=== PATIENT | female | born 1950 | race Caucasian/White ===

== ENCOUNTER → 2017-09-10 | Outpatient (CLI) | payer MEDICARE, OTHER, SELFPAY | PROVIDERS: Visit Provider Nurse Practitioner Family | DX: E11.9 Type 2 diabetes mellitus without complications (principal); I10 Essential (primary) hypertension; E03.9 Hypothyroidism, unspecified; M25.562 Pain in left knee | CPT/HCPCS: 36415; 73562; 80053; 80061; 82043; 82570; 83036; 84443 ==

== ENCOUNTER → 2017-12-23 09:38 | Outpatient (CLI) | payer MEDICARE, OTHER, SELFPAY ==
[2017-12-23 09:44] LABS: Microscopic, Urine URINE MICROSCOPIC (MICROSCOPIC)
--- NOTE | 2017-12-23 09:59 | XR_ITS ---
XR chest 2V HISTORY: Pain, family history history of cardiovascular disease ITS.REASON: OSTEOARTHRITIS ORDERING PHYSICIAN: Lazaro Mascorro MD PATIENT AGE: 67 years COMPARISON: None available FINDINGS: Cardiac size is upper limits of normal. No CHF. There is evidence of old granulomatous disease. Multiple calcified hilar mediastinal lymph nodes are present. The lungs are clear. There are degenerative changes in the left shoulder and spine. IMPRESSION: As above, no acute finding, old granulomatous disease
[2017-12-23 10:24] LABS: Basophils % 0.3 % (0.1-2.0); Eosinophils # 0.2 K/mm3 (0.0-0.4); Eosinophils % 1.7 % (0.1-12.0); Hematocrit 46.8 % (37.0-47.0); Hemoglobin 15.2 g/dL (12.2-16.2); Lymphocytes # 1.4 K/mm3 (0.7-4.5); Lymphocytes % 16.1 K/mm3 (10-50); Mean Corpuscular HGB Conc 32.4 g/dL (31.8-35.4); Mean Corpuscular Hemoglobin 31.2 pg (27.0-31.2); Mean Corpuscular Volume 96.2 fl (81-99); Mean Platelet Volume 7.4 fl (7.4-10.4); Monocytes # 0.5 K/mm3 (0.1-1.0); Monocytes % 5.8 % (1.7-9.3); Neutrophils # 6.7 K/mm3 (1.8-7.8); Platelet Count 311 K/mm3 (142-424); Red Blood Count 4.86 M/mm3 (4.20-5.40); Red Cell Distribution Width 12.8 % (11.5-17.5); White Blood Count 8.8 K/mm3 (4.8-10.8)
[2017-12-23 11:05] LABS: Appearance,Urine CLEAR (Clear); Bilirubin,Urine Negative (Negative); Blood, Urine Negative (Negative); Color,Urine YELLOW (Yellow); Glucose,Urine (UA) Negative (Negative); Ketones,Urine Negative (Negative); Leukocyte Esterase,Urine Negative (Negative); Nitrate,Urine Negative (Negative); Protein,Urine Negative (Negative); Specific Gravity, Urine 1.015 (1.005-1.030); Urobilinogen,Urine 0.2 EU/dl (0.2)
[2017-12-23 11:25] LABS: Bacteria,Urine Trace /lpf; Squamous Epithelial Cell,Urine Occasional #/hpf (0-5); WBC,Urine Occasional #/hpf (0-3)
[2017-12-23 11:56] LABS: Alanine Aminotransferase 26 U/L (12-78); Albumin Level 3.9 gm/dL (3.4-5.0); Albumin/Globulin Ratio 1.2 (1.1-1.8); Alkaline Phosphatase 78 U/L (46-116); Anion Gap 12.8 mEq/L (5-15); Aspartate Amino Transferase 16 U/L (15-37); Bilirubin,Total 0.8 mg/dL (0.2-1.0); Blood Urea Nitrogen 14 mg/dL (7-18); Calcium 9.5 mg/dL (8.5-10.1); Carbon Dioxide 30 mmol/L (21.0-32.0); Chloride 104 mmol/L (98-107); Creatinine,Serum 0.61 mg/dL (0.55-1.02); Estimated Glomerular Filt Rate 97 ml/min (>60); GFR (African American) 118 ML/MIN (>60); Globulin 3.2 gm/dl (1.3-3.2); Glucose 134 mg/dL (74-106); Potassium 4.8 mmoL/L (3.5-5.1); Sodium 142 mmol/L (136-145); Thyroid Stimulating Hormone 1.94 uIU/ml (0.358-3.740); Total Protein,Serum 7.1 gm/dL (6.4-8.2)
== END ==
PROVIDERS: PCP Internal Medicine Adolescent Medicine; Visit Provider Internal Medicine Adolescent Medicine
DX: Z01.818 Encounter for other preprocedural examination (principal); M17.12 Unilateral primary osteoarthritis, left knee; E03.9 Hypothyroidism, unspecified
CPT/HCPCS: 36415; 71046; 80053; 81001; 84443; 85025; 93005

== ENCOUNTER 2018-02-19 13:00 | Outpatient (RCR) | payer MEDICARE, OTHER, SELFPAY | END 2018-02-19 13:01 | disposition home or self-care (01) | LOC: PT 13:00 | PROVIDERS: Family Provider Internal Medicine Adolescent Medicine; PCP Internal Medicine Adolescent Medicine; Visit Provider Orthopaedic Surgery | DX: Z96.652 Presence of left artificial knee joint (principal) | CPT/HCPCS: 97010; 97014; 97016; 97110; 97140; 97163; G0283 ==

== ENCOUNTER → 2018-07-28 10:21 | Outpatient (CLI) | payer MEDICARE, OTHER, SELFPAY ==
--- NOTE | 2018-07-28 10:25 | MM_ITS ---
MM Dig screening mamm BI w/CAD ORDERING PHYSICIAN : Lazaro Mascorro MD PATIENT AGE: 68 years GENDER: Female COMPARISON: September 2016, 2013, April 2015 INDICATION: ITS.REASON: SCREENINGNo hormones. No new complaints Family history. Mother with breast cancer age 65. Also Maternal great aunt with breast cancer. TECHNIQUE: Standard CC and MLO images were obtained. R2 CAD reviewed. FINDINGS: Moderate residual fibroglandular elements with no suspicious or dominant mass in either breast Mild asymmetry is again noted but I believe is overall stable when technique and considered. RIGHT BREAST stable overall :Minimal areas nodularity superior right breast on MLO view appear stable. Small areas of benign-appearing calcifications stable LEFT BREAST:Moderate no significant change --------IMPRESSION: . Stable mammogram moderate breast density with No new areas of significant concern Bilateral follow-up in one year BI-RADS Category: 1 Negative RECOMMENDED FOLLOW-UP: 1YR 1 YEAR FOLLOW-UP (A letter has been sent to the patient regarding results of the study.)
== END ==
PROVIDERS: PCP Internal Medicine Adolescent Medicine; Visit Provider Internal Medicine Adolescent Medicine
DX: Z12.31 Encounter for screening mammogram for malignant neoplasm of breast (principal)
CPT/HCPCS: 77067

== ENCOUNTER 2018-09-10 09:00 | Outpatient (RCR) | payer MEDICARE, OTHER, SELFPAY ==
--- NOTE | 2018-09-02 09:47 | HMH.PTOPEV ---
PT Outpatient Evaluation Rehab PT Outpatient Evaluation Start: 09/02/18 09:18 Freq: Status: Active Protocol: Document 09/02/18 09:35 SOPHYBAILEY (Rec: 09/02/18 09:46 [id number]) Electronically Signed By Owen Abbott PT 09/02/18 09:35 Outpatient Therapy Subjective History Subjective History This is the initial OP Physical Therapy evaluation for Angelique Garnica. Pt is a 68 y/o female referred to PT for c/o R shoulder. Pt reports insidious onset of pain ~ 2 months ago. Pt reports she has pain w/ household activities, lifting [place] and driving. Pt reports pain in anterior shoulder and into biceps. Chief Complaint Pain Weakness Symptom Type Ache Throb Dull Symptoms Relieved By Rest/Positioning Heat Symptoms Aggravated By Physical Activity Lifting Prior Functional Limitations None Current Functional Limitations Housework Dressing Driving Recreation Activity Symptom Description Intermittent Level of pain today (0-10) 0 Pain scale - at its best (0-10) 0 Pain scale - at its worst (0-10) 5 Shoulder/Elbow Eval Shoulder Objective Measurements Palpation Tenderness tenderness shoulder exam standard right tenderness over the bicipital tendon right shoulder exam standard tenderness over the SA bursa shoulder right exam standard Shoulder Palpation Findings Tenderness Posture Shoulder Posture Sitting Position (L) Rounded (R) Rounded (L) Forward (R) Forward Shoulder ROM Bilateral pain with active ROM shoulder exam right standard full ROM shoulder exam standard bilateral Shoulder Special Tests impingement sign present shoulder exam right standard Shoulder Drop Arm Test Negative Right Shoulder Empty Can (Supraspinatus) Test Negative Right Shoulder Peace-Bradley Impingement Positive Right Test Shoulder Neer Impingement Test Positive Right Elbow Objective Measurements Outpatient Therapy Assessment Impairments Problems/Impairmments Palpation Tenderness Impaired Lifting
== END 2018-09-10 09:05 | disposition home or self-care (01) ==
LOC: PT 09:00
PROVIDERS: Visit Provider Internal Medicine Adolescent Medicine
DX: S43.421A Sprain of right rotator cuff capsule, initial encounter (principal)
CPT/HCPCS: 97110; 97163

== ENCOUNTER → 2018-12-26 09:12 | Outpatient (CLI) | payer MEDICARE, OTHER, SELFPAY ==
[2018-12-26 10:40] LABS: Hemoglobin A1C 6.7 % (0.0-7.0)
[2018-12-26 13:10] LABS: Alanine Aminotransferase 22 U/L (12-78); Albumin Level 3.9 gm/dL (3.4-5.0); Albumin/Globulin Ratio 1.2 (1.1-1.8); Alkaline Phosphatase 72 U/L (46-116); Anion Gap 13.4 mEq/L (5-15); Aspartate Amino Transferase 15 U/L (15-37); Bilirubin,Total 0.7 mg/dL (0.2-1.0); Blood Urea Nitrogen 14 mg/dL (7-18); Calcium 9.4 mg/dL (8.5-10.1); Carbon Dioxide 28 mmol/L (21.0-32.0); Chloride 97 mmol/L (98-107); Chol/HDL Ratio 3.2 (1-3.5); Cholesterol 188 mg/dL (140-200); Estimated Glomerular Filt Rate 71 ml/min (>60); GFR (African American) 86 ML/MIN (>60); Globulin 3.3 gm/dl (1.3-3.2); Glucose 126 mg/dL (74-106); HDL Cholesterol 59 mg/dL (29-89); LDL Cholesterol 112 mg/dL (0-130); Potassium 4.4 mmoL/L (3.5-5.1); Sodium 134 mmol/L (136-145); Thyroid Stimulating Hormone 1.22 uIU/ml (0.358-3.740); Total Protein,Serum 7.2 gm/dL (6.4-8.2); Triglycerides 87 mg/dL (30-200); VLDL Cholesterol 17 mg/dL (0-40)
== END ==
PROVIDERS: Visit Provider Internal Medicine Adolescent Medicine
DX: E03.9 Hypothyroidism, unspecified (principal); E11.9 Type 2 diabetes mellitus without complications; Z79.84 Long term (current) use of oral hypoglycemic drugs
CPT/HCPCS: 36415; 80053; 80061; 83036; 84443

== ENCOUNTER → 2019-10-27 07:20 | Outpatient (CLI) | payer MEDICARE, OTHER, SELFPAY ==
[2019-10-27 08:35] LABS: Hemoglobin A1C 6.6 % (0.0-7.0)
[2019-10-27 10:00] LABS: Alanine Aminotransferase 17 U/L (9-52); Albumin Level 3.7 g/dL (3.4-5.0); Albumin/Globulin Ratio 1.3 (1.1-1.8); Alkaline Phosphatase 53 U/L (46-116); Anion Gap 12.5 mEq/L (5-15); Aspartate Amino Transferase 9 U/L (15-37); Bilirubin,Total 0.5 mg/dL (0.2-1.0); Blood Urea Nitrogen 14 mg/dL (7-18); Calcium 8.9 mg/dL (8.5-10.1); Carbon Dioxide 29 mmol/L (21.0-32.0); Chloride 99 mmol/L (98-107); Chol/HDL Ratio 49.8 (1-3.5); Cholesterol 199 mg/dL (140-200); Creatinine,Serum 0.75 mg/dL (0.55-1.02); Estimated Glomerular Filt Rate 76 ml/min (>60); GFR (African American) 92 ML/MIN (>60); Globulin 2.9 gm/dl (1.3-3.2); Glucose 130 mg/dL (74-106); HDL Cholesterol 4 mg/dL (29-89); LDL Cholesterol 177 mg/dL (0-130); Potassium 4.5 mmoL/L (3.5-5.1); Sodium 136 mmol/L (137-145); Thyroid Stimulating Hormone 2.75 uIU/ml (0.358-3.740); Total Protein,Serum 6.6 g/dL (6.4-8.2); Triglycerides 90 mg/dL (30-200); VLDL Cholesterol 18 mg/dL (0-40)
== END ==
PROVIDERS: Visit Provider Internal Medicine Adolescent Medicine
DX: E78.5 Hyperlipidemia, unspecified (principal); E03.9 Hypothyroidism, unspecified; E11.9 Type 2 diabetes mellitus without complications; Z79.84 Long term (current) use of oral hypoglycemic drugs
CPT/HCPCS: 36415; 80053; 80061; 83036; 84443

== ENCOUNTER → 2019-11-04 08:55 | Outpatient (CLI) | payer MEDICARE, OTHER, SELFPAY ==
--- NOTE | 2019-11-04 08:57 | MM_ITS ---
PROCEDURE: MM DIG SCREENING MAMM BI W/CAD CLINICAL INDICATION: SCREENING COMPARISON: [facility] DIG MAMM-SCREEN KANA from 04/24/2015 [facility] DIG MAMM-SCREEN KANA W/CAD from 10/03/2016 [facility] MM Dig screening mamm BI w/CAD from 07/28/2018 TECHNIQUE: Standard CC and MLO images and 3D Tomosynthesis was obtained. R2 CAD reviewed. FINDINGS: On the CC views there is a circumscribed nodule approximately 6 millimeters in the medial middle 1/3 of the left breast. A correlate for this finding is seen on the MLO views at approximately the nipple line. This appears more conspicuous than on the previous exam and a developing nodule is not excluded. Coned compression views and ultrasound are recommended to further evaluate. No other significant interval changes are apparent. IMPRESSION: BI-RAD Category: 0 Need Additional Imaging Evaluation FOLLOW-UP: (A letter has been sent to the patient regarding results of the study.) Dictated by: Quintin Reynoso 11/04/2019 18:38 Electronically signed by Quintin Reynoso in [place] 11/04/2019 18:38
== END ==
PROVIDERS: PCP Internal Medicine Adolescent Medicine; Visit Provider Internal Medicine Adolescent Medicine
DX: Z12.31 Encounter for screening mammogram for malignant neoplasm of breast (principal)
CPT/HCPCS: 77063; 77067

== ENCOUNTER → 2019-11-16 11:07 | Outpatient (POV) | payer MEDICARE, OTHER, SELFPAY | PROVIDERS: PCP Dermatology; Visit Provider Dermatology | DX: Z00.00 Encounter for general adult medical examination without abnormal findings (principal) ==

== ENCOUNTER → 2019-11-22 13:18 | Outpatient (CLI) | payer MEDICARE, OTHER, SELFPAY ==
--- NOTE | 2019-11-22 13:21 | MM_ITS ---
PROCEDURE: MM DIG MAMM DX UNILAT LT CAD Digital Breast Tomosynthesis Included CLINICAL INDICATION: ABN MAMM COMPARISON: [facility] DIG MAMM-SCREEN KANA W/CAD from 10/03/2016 [facility] MM Dig screening mamm BI w/CAD from 07/28/2018 MM DIG SCREENING MAMM BI W/CAD from 11/04/2019 US BREAST LT COMPLETE from 11/22/2019 TECHNIQUE: Spot-compression views are obtained along with left breast ultrasound. FINDINGS: No malignant appearing mass or malignant-appearing microcalcification is evident. Left breast ultrasound: No cystic or solid lesions evident. IMPRESSION: BI-RAD Category: 1 Negative FOLLOW-UP: 1YR 1 Year Follow-up (A letter has been sent to the patient regarding results of the study.) Dictated by: Teja Hernandez MD 11/22/2019 14:05 Electronically signed by Teja Hernandez MD in [place] 11/22/2019 14:05
== END ==
PROVIDERS: PCP Internal Medicine Adolescent Medicine; Visit Provider Internal Medicine Adolescent Medicine
DX: R92.8 Other abnormal and inconclusive findings on diagnostic imaging of breast (principal)
CPT/HCPCS: 76641; 77061; 77065; G0279

== ENCOUNTER → 2020-02-04 10:31 | Outpatient (CLI) | payer MEDICARE, OTHER, SELFPAY ==
--- NOTE | 2020-02-04 10:36 | XR_ITS ---
PROCEDURE: XR DEXA AXIAL SKELETON CLINICAL HISTORY: POSTMENOPAUSAL COMPARISON: No exams were available for comparison FINDINGS: Right femoral neck density is 0.757 grams/centimeters sq with T-score -0.8. Left femoral neck density is 0.775 grams/centimeters sq with T-score -0.7. L1-L4 density is 1.233 grams/centimeter sq with a T-score of 1.7 IMPRESSION: Normal bone density with low fracture risk. Suggest follow-up exam in 2 years Dictated by: Teja Hernandez MD 02/04/2020 14:21 Electronically signed by Teja Hernandez MD in [place] 02/04/2020 14:21
== END ==
PROVIDERS: PCP Internal Medicine Adolescent Medicine; Visit Provider Internal Medicine Adolescent Medicine
DX: Z13.820 Encounter for screening for osteoporosis (principal); Z78.0 Asymptomatic menopausal state
CPT/HCPCS: 77080

== ENCOUNTER → 2020-02-28 17:11 | Outpatient (CLI) | payer MEDICARE, OTHER, SELFPAY ==
--- NOTE | 2020-02-28 17:24 | XR_ITS ---
PROCEDURE: XR SHOULDER RT MIN 2V CLINICAL INDICATION: BILATERAL SHOULDER PAIN, NO INJURY COMPARISON: No exams were available for comparison FINDINGS: There are moderate osteoarthritic changes of the glenohumeral joint with subacromial stenosis and mild osteoarthritis of the AC joint. Minimal calcification noted inferior to the neck of the humerus. No acute fracture or dislocation. There is a thin curvilinear sclerotic line along the humeral neck extending up into the head region. This could be related to an old fracture. IMPRESSION: Osteoarthritic change Possible old proximal humeral fracture Dictated by: Teja Hernandez MD 02/28/2020 17:57 Electronically signed by Teja Hernandez MD in [place] 02/28/2020 17:57
--- NOTE | 2020-02-28 17:24 | XR_ITS ---
PROCEDURE: XR SHOULDER LT MIN 2V CLINICAL INDICATION: Worsening pain COMPARISON: XR SHOULDER RT MIN 2V from 02/28/2020 FINDINGS: There are moderate osteoarthritic changes of the glenohumeral joint with osteophyte formation along the humeral head/neck junction medially and along the greater tubercle region with a subarticular cyst at the base of the greater tubercle. Mild osteoarthritic change of the AC joint. No acute fracture or dislocation. Calcification noted superior to the humeral head on the scapular Y-view and may be related to calcific tendinitis. There may be some subarticular cystic change at the glenoid fossa IMPRESSION: Osteoarthritic change as described above with possible calcific tendinitis Dictated by: Teja Hernandez MD 02/28/2020 17:50 Electronically signed by Teja Hernandez MD in [place] 02/28/2020 17:50
== END ==
PROVIDERS: PCP Internal Medicine Adolescent Medicine; Visit Provider Internal Medicine Adolescent Medicine
DX: M25.512 Pain in left shoulder (principal); M25.511 Pain in right shoulder
CPT/HCPCS: 73030

== ENCOUNTER 2020-03-20 15:00 | Outpatient (RCR) | payer MEDICARE, OTHER, SELFPAY | END 2020-03-20 15:05 | disposition home or self-care (01) | LOC: OT 15:00 | PROVIDERS: PCP Internal Medicine Adolescent Medicine; Visit Provider Internal Medicine Adolescent Medicine | DX: M25.512 Pain in left shoulder (principal); M25.511 Pain in right shoulder | CPT/HCPCS: 97014; 97033; 97035; 97110; 97165; G0283 ==

== ENCOUNTER → 2020-05-10 13:32 | Outpatient (CLI) | payer MEDICARE, OTHER, SELFPAY ==
--- NOTE | 2020-05-10 13:32 | MR_ITS ---
PROCEDURE: MR SHOULDER RT WO CON CLINICAL INDICATION: right shoulder pain/ evaluate rotator cuff tear Limited ROM rt shoulder x 6 months with no known trauma or injury. Pt. C/o rt shoulder pain radiating down rt arm. Prior rt shoulder x-ray 02/28/20 COMPARISON: CR XR SHOULDER RT MIN 2V from 02/28/2020 TECHNIQUE: Routine multiplanar multi echo sequences are performed without gadolinium enhancement. FINDINGS: Motion artifact obscures fine detail on every sequence. Prominent osteoarthritic changes are present at the glenohumeral joint with elevation of the humeral head. Osteoarthritic changes with hypertrophy also noted at the acromioclavicular joint. There is full-thickness tear of the supraspinatus tendon distally. This may very well represent a complete tear. There is some questionable fibers which may be intact however, this is questionable. There is tear also of the infraspinatus tendon which appears partial. The subscapularis and teres minor tendons are intact. No obvious labral tear. Fluid is present in the shoulder joint in the sub glenoid region and in the subcoracoid area. The bicipital tendon is in place. IMPRESSION: Severe osteoarthritis of the glenohumeral joint with superior location of the humeral head with full-thickness and possibly complete tear of the supraspinatus tendon and partial tear of the infraspinatus tendon. Fluid is present in the subcoracoid and subglenoid region. There are hypertrophic changes of the acromioclavicular joint. Motion artifact does obscure fine detail. Dictated by: Teja Hernandez MD 05/11/2020 09:32 Teja Hernandez MD in [place] 05/11/2020 09:32
== END ==
PROVIDERS: PCP Internal Medicine Adolescent Medicine; Visit Provider Orthopaedic Surgery
DX: M25.511 Pain in right shoulder (principal)
CPT/HCPCS: 73221

== ENCOUNTER → 2020-06-26 12:49 | Outpatient (CLI) | payer MEDICARE, OTHER, SELFPAY ==
--- NOTE | 2020-06-26 | CA_ITS ---
APPROVED REPORT EXAM: Comprehensive 2D, Doppler, and color-flow Echocardiogram Assistant Professor Of Music: Eliane Gan CRT Ht: 5 ft 3 in Wt: 191lbs BSA: 1.90 BP: 138/72 mmHg Indications: Abnormal ECG, Diabetes, Hyperlipidemia, Hypertension/HDD Echo Enhancing Agent Indication: Rule out Shunt Agent(s) / Amount(s) Used: Agitated Saline 15 cc Comments: Bubble study ordered by 2D Dimensions LVOT 2.04 cm (M/F) 1.5-2.5 M-Mode Dimensions RVDd 2.58 cm (0.9-2.6) LVDd 4.29 cm (3.5-5.7) LVDs 2.43 cm (3.5-5.7) IVSd 2.15 cm (0.6-1.1) PWd 0.97 cm (0.6-1.1) EF (Teich) 74.80% FS 43.40% EDV (Teich) 82.60 mL ESV (Teich) 20.80 mL LV Diastology E/A Ratio 0.73 Aortic Valve LVOT Max 108.00 (70-110 cm/s) LVOT VTI 24.62 cm Mitral Valve MV A Velocity 69.00 (40-130 cm/s) Left Ventricle Left atrium is mildly enlarged, left ventricle is normal size, mild concentric left ventricular hypertrophy, visually estimated ejection fraction 55% with no regional wall motion abnormality, grade 1 diastolic dysfunction seen without tissue Doppler evidence of raise left atrial pressure. Right Ventricle Right atrium and right ventricular normal size and contractility. Atria Intra-atrial septum is intact, there is no flow across interatrial septum, agitated saline contrast reveals 25 intracardiac shunt. Aortic Valve Aortic valve is minimally thickened and calcified, there is no aortic stenosis or aortic insufficiency. Mitral Valve Mitral valve is grossly normal, there is mild mitral regurgitation. Tricuspid Valve Tricuspid valve is grossly normal, there is mild tricuspid regurgitation, tricuspid regurgitation jet velocity is inadequate for calculation of the right ventricular systolic pressure. Pulmonic Valve Pulmonic valve is poorly visualized. Great Vessels Aortic root is normal size. Pericardium No significant pericardial effusion noted. Conclusion 1. Mildly enlarged left atrium, normal left ventricular size, mild concentric left ventricular hypertrophy, visually estimated ejection fraction 55% with no regional wall motion abnormality, grade 1 diastolic dysfunction seen without tissue Doppler evidence of raise left atrial pressure. 2. Mild mitral and tricuspid regurgitation. 3. Agitated saline contrast study fails 25 intracardiac shunt. Electronically signed by : Edson Carnes, 06/26/2020 20:54:39
== END ==
PROVIDERS: PCP Internal Medicine Adolescent Medicine; Visit Provider Internal Medicine Adolescent Medicine
DX: Z01.810 Encounter for preprocedural cardiovascular examination (principal); I45.10 Unspecified right bundle-branch block
CPT/HCPCS: 93306

== ENCOUNTER → 2020-07-01 10:19 | Outpatient (CLI) | payer MEDICARE, OTHER, SELFPAY ==
[2020-07-01 10:25] LABS: Microscopic, Urine URINE MICROSCOPIC (MICROSCOPIC)
[2020-07-01 10:49] LABS: Basophils % 0.5 % (0.1-2.0); Eosinophils # 0.4 K/mm3 (0.0-0.4); Eosinophils % 4.3 % (0.1-12.0); Hematocrit 43.3 % (37.0-47.0); Hemoglobin 14.1 g/dL (12.2-16.2); Lymphocytes # 1.3 K/mm3 (0.7-4.5); Lymphocytes % 15.3 % (10-50); Mean Corpuscular HGB Conc 32.5 g/dL (31.8-35.4); Mean Corpuscular Hemoglobin 30.7 pg (27.0-31.2); Mean Corpuscular Volume 94.3 fl (81-99); Mean Platelet Volume 6.4 fl (7.4-10.4); Monocytes # 0.5 K/mm3 (0.1-1.0); Monocytes % 5.1 % (1.7-9.3); Neutrophils # 6.5 K/mm3 (1.8-7.8); Neutrophils % 74.9 % (37.0-80.0); Platelet Count 393 K/mm3 (142-424); Red Cell Distribution Width 12.4 % (11.5-17.5); White Blood Count 8.7 K/mm3 (4.8-10.8)
[2020-07-01 11:28] LABS: Appearance,Urine CLEAR (Clear); Bilirubin,Urine Negative (Negative); Blood, Urine Negative (Negative); Color,Urine YELLOW (Yellow); Glucose,Urine (UA) Negative (Negative); Ketones,Urine Negative (Negative); Leukocyte Esterase,Urine Negative (Negative); Nitrate,Urine Negative (Negative); PH,Urine 6.5 (5.0-8.5); Protein,Urine Negative (Negative); Urobilinogen,Urine 0.2 EU/dl (0.2)
[2020-07-01 11:41] LABS: Bacteria,Urine Trace /lpf; Transitional Epi Cells,Urine OCC #/lpf (0-3)
[2020-07-01 12:43] LABS: Coronavirus 19 IgG Antibody Positive (Negative); Coronavirus 19 IgM Antibody Negative (Negative)
[2020-07-01 13:01] LABS: Chloride 87 mmol/L (98-107); Potassium 3.9 mmoL/L (3.5-5.1); Sodium 126 mmol/L (136-145)
[2020-07-01 13:04] LABS: Alanine Aminotransferase 58 U/L (12-78); Albumin Level 3.9 g/dl (3.5-5.0); Albumin/Globulin Ratio 1.4 (1.1-1.8); Alkaline Phosphatase 190 U/L (38-126); Anion Gap 11.9 mEq/L (5-15); Aspartate Amino Transferase 47 U/L (14-36); Blood Urea Nitrogen 10 mg/dl (7-17); Calcium 9.8 mg/dl (8.4-10.2); Carbon Dioxide 31 mmol/L (22.0-30.0); Estimated Glomerular Filt Rate 82 ml/min (>60); GFR (African American) 100 ML/MIN (>60); Globulin 2.7 g/dL (1.3-3.2); Glucose 207 mg/dl (74-100); Total Protein,Serum 6.6 g/dl (6.3-8.2)
[2020-07-01 13:51] LABS: Hemoglobin A1C 7.9 % (4.0-6.0)
== END ==
PROVIDERS: Visit Provider Orthopaedic Surgery
DX: Z01.818 Encounter for other preprocedural examination (principal)
CPT/HCPCS: 36415; 80053; 81001; 83036; 85025; 86328; 86850

== ENCOUNTER 2020-07-03 07:20 | Inpatient (IN) | payer MEDICARE, OTHER, SELFPAY ==
[2020-06-28 13:30] VITALS: BMI 34.7
[2020-07-03] VITALS (23 sets, daily range): BP systolic 113–193; BP diastolic 58–98; PULSE 64–81; RESP 13–20; TEMP 36.3–38; O2SAT 96–100; BMI 35.8
[2020-07-03 06:51] LABS: POC Glucose,Bedside 229 (70-110)
[2020-07-03 06:58] LABS: Chloride 88 mmol/L (98-107); Potassium 3.9 mmoL/L (3.5-5.1); Sodium 124 mmol/L (136-145)
[2020-07-03 07:01] LABS: Anion Gap 13.9 mEq/L (5-15); Blood Urea Nitrogen 12 mg/dl (7-17); Calcium 9.7 mg/dl (8.4-10.2); Carbon Dioxide 26 mmol/L (22.0-30.0); Creatinine Clearance Estimated 71 mL/min (50-200); Estimated Glomerular Filt Rate 98 ml/min (>60); GFR (African American) 119 ML/MIN (>60); Glucose 248 mg/dl (74-100)
--- NOTE | 2020-07-03 07:04 | P.PN_ITS ---
[facility] Anesthesia Checklist - Patient Identification Patient Identification: Arm Band, Verbal (Name & ) - Structural Data Admitted From: Home Planned Operative Procedure/s: right total shoulder arthroplasty Consent for Planned Operative Procedure(s) Verified: Yes Verified Documents: History and Physical - NPO Status Verified Time NPO: 00:00 - Chart Verification Results Verified: CBC, BMP - Additional verifications Patient : No Anesthesia Reactions: No Hx Blood Transfusions: No Blood Transfusion Reaction: No Cephalosporin Allergy: No Previous Colonoscopy: No - Cardiovascular Assessment Heart Sounds: S1 & S2 Pulse Strength: Baseline Pulse Rhythm: Regular Peripheral Edema: No - Airway Assessment C-Spine Mobility Assessed: Yes TMJ Mobility Assessed: Yes Dentition: Good Dentition - Neurological Assessment Level of Consciousness: Awake, Alert, Appropriate Hx Seizures: No Numbness or tingling in extremities: No - Anesthesia Plan Anesthesia Risk discussed: Yes Anesthesia Plan: Verified ASA Class: III Anesthesia Type: General w/block [facility] History I have reviewed the patient's past medical history: Yes Medical History: Reports:: Diabetes Mellitus Type 2, Hyperlipidemia, Hypertension Denies:: Cancer, Diabetes Mellitus Type 1, Internal Pacemaker, MRSA, Seizures *Have you ever received a pneumonia vaccine?: Yes *Have you received a flu vaccine this season?: Yes Other Medical History: Reports: Arthritis. Denies: Blood Transfusion Reaction Anesthesia experience/problems:: none Laterality Cases: Left: Total Knee Replacement, Bilateral: Tonsillectomy Other Surgeries: Yes: Colonoscopy. No: Pacemaker Amputation: No - *Social History Last grade of school completed: High school graduate Smoking Status: Never smoker Alcohol Intake: never Substance Use Type: other *Occupational Status:: retired Housing: house Household Members: spouse *Travel in the last 8 weeks: None Family Hx:: Cancer, Hypertension
--- NOTE | 2020-07-03 07:34 | HMH.PHAINT ---
HOME MEDICATION RECONCILIATION COMPLETED USING LIST FROM HOME PHARMACY
[2020-07-03 11:39] LABS: POC Glucose,Bedside 126 (70-110)
--- NOTE | 2020-07-03 12:33 | XR_ITS ---
PROCEDURE: XR SHOULDER RT MIN 2V CLINICAL INDICATION: s/p reverse right shoulder arthroplasty COMPARISON: CR XR SHOULDER RT MIN 2V from 02/28/2020 FINDINGS: The reverse shoulder prosthesis is in good alignment with the glenoid component fixated to the glenoid by multiple threaded screws. The medullary stem is well seated within the proximal humeral shaft. Minor postsurgical soft tissue changes are noted. IMPRESSION: Satisfactory postop appearance right shoulder prosthesis Dictated by: Dr. Catalino Brady MD 07/03/2020 14:39 Dr. Catalino Brady MD in [place] 07/03/2020 14:39
--- NOTE | 2020-07-03 12:45 | HMH.ANESI ---
[facility] Anesthesia Record Part I Intake, IV Amount: 2,200 Estimated blood loss (mL): 100 Urine output (mL): 400 Blood Products used (#): none Blood Pressure: 132/59 SaO2: 97 Pulse Rate: 67 Respiratory Rate: 20 Temperature: 98.4 F Patient is:: Drowsy, Nasal O2, Stable Stable to PACU at:: 12:42
--- NOTE | 2020-07-03 13:03 | HMH.OPNOTE ---
Date of procedure: 07/03/20 Pre-op Diagnosis:: Rotator cuff tear arthropathy, right shoulder Post-op Diagnosis:: Same Procedure performed:: Reverse shoulder arthroplasty, right Surgeon:: Ko Marx MD [facility] Subject Matter Expert(s):: Linda Love SHADING PAINTER:: Sarah Daniel Anesthesia: GETA, regional (Interscalene nerve block) Estimated blood loss (mL): 100 Clinical Note:: Patient is a 70-year-old female with advanced degenerative changes in her right shoulder secondary to chronic rotator cuff tear. She is having significant pain, stiffness and disability secondary to the arthritis. Please refer to my office note for full details. Operative findings:: Advanced degenerative changes involving both glenoid and humeral head as noted on the preoperative imaging. Patient also had complete full-thickness tears of the supra and infraspinatus tendons. Subscapularis had partial upper border tear. The biceps tendon was intact. Operative note:: The patient was identified in the preoperative holding area. Risks were discussed with the patient, who again consented to the surgical procedure. The site and side were marked and initialed by me. Patient was taken to the operating room and placed under general anesthesia and positioned in a beach chair position with the head in neutral position. All the bony prominences were appropriately padded. Prior to that patient also had interscalene nerve blocks in the preoperative area. The upper extremity was prepped and draped in the usual sterile fashion. Skin incision was marked for a deltopectoral approach. The operative site was then sealed off with Ioban drape. A preprocedure timeout was performed as per hospital protocol.? Administration of preoperative prophylactic antibiotics (IV Ancef and vancomycin) was confirmed with the education reporter.? First dose of tranexamic acid was administered by the education reporter prior to starting the procedure. A 10 cm long incision was made over the deltopectoral interval. Using a combination of Bovie cautery and blunt dissection, the deltopectoral interval was developed mobilizing the cephalic vein medially. The underlying fascia was incised and a combination of careful sharp and blunt dissection was used to free up the subdeltoid, subcoracoid and subacromial intervals. Rotator cuff pathology involving the supraspinatus, infraspinatus and part of the subscapularis was identified. Excess degenerative rotator cuff was released and excised. The biceps tendon was identified in the groove and noted to be partially torn.? The biceps tendon was tenotomized and soft tissue tenodesis performed to the upper border of pectoralis major with #1 Vicryl sutures. Inferiorly the capsule was carefully released and the humeral head was gently dislocated anteriorly. An external cutting guide was placed along the humerus and the humeral head and surrounding osteophytes were resected. A canal finder followed by sequential reaming and broaching was performed, and the trial broach was left in position. A calcar planar was used to fine-tune the depth, varus/valgus and version of the humeral cut. Retractors were then placed around the glenoid and the labrum was excised all around. The axillary nerve was identified by tug test and a careful capsular release was performed after protecting the axillary nerve. Osteophytes mainly anteriorly over the glenoid were removed with a rondure. Guide pin was drilled into the central inferior aspect of the glenoid at 10 degrees of inferior tilt using the drill guide. The glenoid was then reamed. A standard Quapaw reunion baseplate with a center screw and 4 peripheral locking screws was opened and assembled onto the glenoid with excellent initial fixation. Based off trialing and soft tissue tension, a Chantell reunion is size 10 humeral stem with a 4 mm humeral socket and 6 mm poly-liner was opened and assembled on the back table. A 32+6 glenosphere was opened and assembled onto the basepla
[2020-07-03 13:08] LABS: POC Glucose,Bedside 158 (70-110)
[2020-07-03 13:08] LABS: Microscopic,Cath URINE MICROSCOPIC (MICROSCOPIC)
[2020-07-03 13:10] LABS: Appearance,Urine/Cath CLEAR (Clear); Bilirubin,Cath Negative (Negative); Blood, Urine/Cath Negative (Negative); Color,Urine/Cath YELLOW (Yellow); Glucose,Urine/Cath (UA) TRACE (Negative); Ketones,Urine/Cath Negative (Negative); Leukocyte Esterase,Cath Negative (Negative); Nitrate,Cath Negative (Negative); PH,Urine/Cath 7.5 (5.0-8.5); Protein,Urine/Cath Negative (Negative); Urobilinogen,Cath 0.2 EU/dl (0.2)
[2020-07-03 13:29] LABS: Bacteria,Urine/Cath TRACE /lpf; Squamous Epithelial Ur./Cath Occasional #/hpf (0-5)
--- NOTE | 2020-07-03 14:15 | SW/DCPLANNER ---
Addendum entered by Corrine Tesfaye 07/04/20 13:56: DR RUSS STATED PATIENT IS NOT READY FOR ANY REHAB SERVICES AT THIS TIME UNTIL HE SEES HER IN THE OFFICE... I SPOKE WITH PATIENT AND SHE STATED SHE DOES NOT NEED ANY EQUIPMENT AT HOME... MAY DISCHARGE LATER TODAY... Addendum entered by Corrine Tesfaye 07/04/20 06:46: WILL SEE PATIENT THIS MORNING TO SPEAK ABOUT HER DISCHARGE PLANS SINCE PATIENT IS AWAKE AND ALERT... PATIENT AND WAS OFFERED OUT PATIENT THERAPY HERE AT THE HOSPITAL YESTERDAY AFTER HER SURGERY AND SINCE THEY LIVE JUST [address] I FELT HER THERAPY MAY BE MORE SUCCESSFUL HERE VS HOME HEALTH.... WILL SEE IF SHE NEEDS ANY EQUIPMENT BEFORE SHE DISCHARGES AND ANYTHING ELSE SHE MAY NEED.... Original Note: WENT IN TO SEE PATIENT AND SPOUSE TODAY REGARDING HER DISCHARGE PLANS: SHE WAS DOING HER ADMISSION ASSESSMENT WITH THE NURSE AND I SPOKE WITH THE ... HE STATED THEY LIVE [address] AND HE THINKS HER COMING BACK HERE WOULD BE THE BEST FOR HER REHAB...SHE WAS STILL A LITTLE BIT GROGGY, WILL SEE HER IN THE AM AND FOLLOW UP ON ANY EQUIPMENT SHE MAY NEED... I HAVE ALSO TEXTED DR RUSS...
--- NOTE | 2020-07-03 14:15 | SUR.PHASEI ---
FSBS [phone]-[id number], reported to Ashley Dial.
--- NOTE | 2020-07-03 14:28 | PC.NURSE ---
case management stated they will let dr. anderson know about consult.
--- NOTE | 2020-07-03 15:04 | HMH.ANESII ---
[facility] Anesthesia Record Part II Discharge Time: 13:12 Destination: Medical Surgical Department PACU nurse assessment reviewed?: Yes Patient Condition:: Good Anesthesia Complications:: None Swallowing reflex intact?: Yes Cyanosis?: No Blood Pressure: 146/67 Pulse Rate: 65 Temperature: 97.4 F Mental Status: Alert & Oriented Pain level:: 0 Nausea and/or vomitting:: None Intake, IV Amount: 35
--- NOTE | 2020-07-03 15:31 | HMH.CONS ---
*Admission Date: 07/03/20 *Reason for consult:: Med Management *History of present illness: 70-year-old white female who underwent shoulder surgery today on the right side per orthopedics. Asked to consult for ongoing medication administration and postoperative care. Patient still somewhat sleepy, has mild sore throat and irritant cough but otherwise has no complaints of significant pain or dyspnea issues [facility] History I have reviewed the patient's past medical history: Yes Medical History: Reports:: Diabetes Mellitus Type 2, Hyperlipidemia, Hypertension Denies:: Cancer, Diabetes Mellitus Type 1, Internal Pacemaker, MRSA, Seizures *Have you ever received a pneumonia vaccine?: Yes *Have you received a flu vaccine this season?: Yes Other Medical History: Reports: Arthritis. Denies: Blood Transfusion Reaction Anesthesia experience/problems:: none Laterality Cases: Left: Total Knee Replacement, Right: Arthroscopy Shoulder, Bilateral: Tonsillectomy Other Surgeries: Yes: Colonoscopy. No: Pacemaker Amputation: No - *Social History Last grade of school completed: Some college Smoking Status: Never smoker Alcohol Intake: never Substance Use Type: other *Occupational Status:: retired Housing: house Household Members: spouse *Travel in the last 8 weeks: None Family Hx:: Cancer, Hypertension Review of Systems - Review of Systems Review of systems:: pertinent systems reviewed and negative unless documented below Meds Home Medications Medication Instructions Recorded Confirmed Type loratadine 10 mg tablet 10 mg PO DAILY 09/30/17 07/03/20 History celecoxib 200 mg capsule 200 mg PO BIDP PRN 04/11/20 07/03/20 History fluticasone propionate 50 2 sprays INTRANASAL BID 04/11/20 07/03/20 History mcg/actuation nasal spray,suspension lisinopril 20 1 tab PO DAILY 04/11/20 07/03/20 History mg-hydrochlorothiazide 25 mg tablet primidone 50 mg tablet 50 mg PO DAILY 04/11/20 07/03/20 History Benzoyl Peroxide [Clean-Clear 1 applic TOPICAL BID 06/28/20 07/03/20 History Continuous Control] Chlorhexidine Gluconate 1 applic TOPICAL ONCE 06/28/20 07/03/20 History Atorvastatin Calcium [Lipitor 40mg 40 mg PO HS 07/03/20 07/03/20 History Tablet*] Levothyroxine Sodium 125 mcg PO DAILY 07/03/20 07/03/20 History [Levothyroxine 125mcg (0.125mg) Tab] Metformin HCl [Metformin 1000mg 1,000 mg PO BID 07/03/20 07/03/20 History Tablets] carvediloL [Carvedilol 25mg Tab] 25 mg PO BID 07/03/20 07/03/20 History Allergies Allergy/AdvReac Type Severity Reaction Status Date / Time No Known Allergies Allergy Verified 07/03/20 06:25 Exam Vital signs and Labs for Last 24 Hours: Temp Pulse Resp BP Pulse Ox 97.4 F L 65 15 146/67 H 100 07/03/20 15:05 07/03/20 15:05 07/03/20 13:21 07/03/20 15:05 07/03/20 15:14 Laboratory Results - last 24 hr 07/03/20 06:39: POC Glucose 229 H 07/03/20 06:41: Sodium 124 L, Potassium 3.9, Chloride 88 L, Carbon Dioxide 26, Anion Gap 13.9, BUN 12, Creatinine 0.60, Estimated Creat Clear 71, Estimated GFR 98, Est GFR ( Amer) 119, Glucose 248 H, Calcium 9.7 07/03/20 08:25: Urine Color Yellow, Urine Appearance Clear, Urine pH 7.5, Ur Specific [place] 1.010, Urine Protein Negative, Urine Glucose (UA) Trace, Urine Ketones Negative, Urine Blood Negative, Urine Nitrate Negative, Urine Bilirubin Negative, Urine Urobilinogen 0.2, Ur Leukocyte Esterase Negative, Urine RBC None, Urine WBC None, Ur Squamous Epith Cells Occasional, Urine Bacteria Trace 07/03/20 11:31: POC Glucose 126 H 07/03/20 13:01: POC Glucose 158 H I & O for Last 24 hours: Intake & Output 07/01/20 07/02/20 07/03/20 07/04/20 11:59 11:59 11:59 11:59 Intake Total 2235 / 2235 Balance 2235 / 2235 Weight 196 lb - Constitutional no acute distress, obese - *Routine HEENT Exam Head: Present: normocephalic Eye: Present: EOMI, PERRL ENT: Present: mucous membranes moist - *Routine Neck Exam Present: supple
--- NOTE | 2020-07-03 16:48 | HMH.ORTHPN ---
Subjective Date: 07/03/20 Time: 16:30 Principal diagnosis: Status post reverse shoulder arthroplasty, right Interval history: Patient is status post right reverse shoulder arthroplasty post op day # 0. Patient is lying down in the bed. Says she is doing well and reports no problems. Patient has no pain or discomfort in the shoulder; says the nerve block is working well. She reports some nausea and says it will get better if she eats something. No history of any cough, chest pain, shortness of breath or palpitations. PN: Obj Ex Vital signs: Temp Pulse Resp BP Pulse Ox 97.5 F L 71 15 167/98 H 100 07/03/20 15:20 07/03/20 15:20 07/03/20 15:20 07/03/20 15:20 07/03/20 15:20 Narrative: Exam General appearance: alert, awake, no acute distress Cardiovascular: regular rate & rhythm, normal peripheral pulses Respiratory: No respiratory distress noted, speaks in full sentences ABD: soft and non tender Neuro: alert, awake, oriented x 3 Psych: Appropriate mood and affect for her situation On examination of the right shoulder the dressings are clean, dry and intact; she is in an arm sling. The surgical drain is in place and draining well. There is no soakage of the dressings. Distal pulses are 2+. Decreased sensation and weakness over the right upper extremity status post interscalene nerve block. - Urinary Catheter Management Guerrero Cath placed during this visit: no Progress Note: A&P (1) Type 2 diabetes mellitus with obesity Status: Acute (2) Hypertension Status: Acute (3) Status post reverse total shoulder replacement Start date: 07/03/20 Status: Acute (4) Rotator cuff tear arthropathy of right shoulder Status: Chronic Assessment and Plan for All Diagnoses:: I have reviewed the clinical and operative findings and procedure performed with the patient and her . Patient is doing well and reports no problems. Advised her to continue with the arm sling, rest, activity modification, regular icing/use the polar pack and as needed pain medication. Encouraged her to intermittently move the elbow, forearm, wrist and fingers. Recommend strict nonweightbearing on the right upper extremity. Specifically advised her to not mobilize the shoulder and also place a pillow behind the elbow when lying down or sitting. Case management consult regarding discharge planning. Patient was seen by Dr. Mascorro for management of medical problems; appreciate the recommendations. Continue medical management as per Dr. Mascorro.
--- NOTE | 2020-07-03 18:38 | PC.NURSE ---
185 mls bright red blood emptied from JOHNNY drain.
--- NOTE | 2020-07-03 19:14 | PC.NURSE ---
report given to buffy
--- NOTE | 2020-07-03 19:36 | PC.NURSE ---
30ml of bright red blood drained from JOHNNY drain and charted + prev shift's 185ml output for a total of 215 since post-op.
[2020-07-04] VITALS: BP 125/56; PULSE 75; RESP 16; TEMP 36.3; O2SAT 97
[2020-07-04 04:00] VITALS: BP 125/54; PULSE 71; RESP 16; TEMP 36.6; O2SAT 93
--- NOTE | 2020-07-04 04:22 | PC.NURSE ---
Pt is A&Ox4 and has ambulated to the BSC 3x thus far with staff assist x2 and tolerates well. Pt has c/o pain 1x and medicated per NOV. Polar pack in use and ice changed 2x this shift. Pt has denied any N/V/D. Pt has c/o feeling phlegm in the back of my throat , pt denies any SOA. IS teaching given to pt and pt used several times while awake, goal met. Pt weaned from 1LPM of NC to room air at the beginning of the shift and pt has tolerated RA t/o shift. Lungs CTA. ABD soft, non-tender with active BS x4 quads. JOHNNY drain in place to pt's right shoulder and bright red, xin blood noted t/o shift. Current accumulation this shift is 90ml. IPCS in use to BLE. UE kept in sling and pillows kept behind back of arm per MD Marx. VSS, call light within reach.
[2020-07-04 05:00] VITALS: BMI 34.9
[2020-07-04 06:43] LABS: POC Glucose,Bedside 173 (70-110)
[2020-07-04 07:01] LABS: Basophils % 0.1 % (0.1-2.0); Eosinophils # 0.3 K/mm3 (0.0-0.4); Eosinophils % 2.4 % (0.1-12.0); Hematocrit 38.9 % (37.0-47.0); Hemoglobin 12.8 g/dL (12.2-16.2); Lymphocytes # 1.4 K/mm3 (0.7-4.5); Mean Corpuscular HGB Conc 32.8 g/dL (31.8-35.4); Mean Corpuscular Hemoglobin 30.7 pg (27.0-31.2); Mean Corpuscular Volume 93.7 fl (81-99); Mean Platelet Volume 7.1 fl (7.4-10.4); Monocytes # 0.7 K/mm3 (0.1-1.0); Monocytes % 6.6 % (1.7-9.3); Neutrophils # 8.4 K/mm3 (1.8-7.8); Neutrophils % 77.9 % (37.0-80.0); Platelet Count 336 K/mm3 (142-424); Red Blood Count 4.15 M/mm3 (4.20-5.40); White Blood Count 10.8 K/mm3 (4.8-10.8)
[2020-07-04 07:17] LABS: Chloride 91 mmol/L (98-107); Sodium 126 mmol/L (136-145)
[2020-07-04 07:18] LABS: Potassium 3.4 mmoL/L (3.5-5.1)
[2020-07-04 07:20] LABS: Blood Urea Nitrogen 8 mg/dl (7-17); Creatinine Clearance Estimated 69 mL/min (50-200); Estimated Glomerular Filt Rate 98 ml/min (>60); GFR (African American) 119 ML/MIN (>60)
[2020-07-04 07:21] LABS: Anion Gap 12.4 mEq/L (5-15); Carbon Dioxide 26 mmol/L (22.0-30.0); Glucose 179 mg/dl (74-100)
[2020-07-04 07:53] VITALS: BP 157/76; PULSE 67; RESP 19; TEMP 36.7; O2SAT 97
--- NOTE | 2020-07-04 08:09 | HMH.ACPN2 ---
Internal Medicine - PN: Subj *Date: 07/04/20 *Time: 11:57 Interval history: Ms. Garnica has done well. No nausea overnight. Blood pressure little higher however suspect secondary to pain. Labs this morning stable. Slight improvement in sodium and chloride levels. Denies shortness of breath, nausea, chest pain. Nerve block wore off around 2 this morning. Pain well controlled however on hydrocodone. Of note, has not had a bowel movement in 6 days. Denies significant belly pain however. at bedside, updated on plan. Exam Vital signs and Labs for Last 24 Hours: Temp Pulse Resp BP Pulse Ox 98.1 F 67 19 157/76 H 97 07/04/20 07:53 07/04/20 07:53 07/04/20 07:53 07/04/20 07:53 07/04/20 07:53 Laboratory Results - last 24 hr 07/03/20 08:25: Urine Color Yellow, Urine Appearance Clear, Urine pH 7.5, Ur Specific [place] 1.010, Urine Protein Negative, Urine Glucose (UA) Trace, Urine Ketones Negative, Urine Blood Negative, Urine Nitrate Negative, Urine Bilirubin Negative, Urine Urobilinogen 0.2, Ur Leukocyte Esterase Negative, Urine RBC None, Urine WBC None, Ur Squamous Epith Cells Occasional, Urine Bacteria Trace 07/03/20 11:31: POC Glucose 126 H 07/03/20 13:01: POC Glucose 158 H 07/04/20 06:31: POC Glucose 173 H 07/04/20 06:34: WBC 10.8, RBC 4.15 L, Hgb 12.8, Hct 38.9, MCV 93.7, MCH 30.7, MCHC 32.8, RDW 13.0, Plt Count 336, MPV 7.1 L, Neut % (Auto) 77.9, Lymph % (Auto) 13.0, [place] % (Auto) 6.6, Eos % (Auto) 2.4, Baso % (Auto) 0.1, Neut # (Auto) 8.4 H, Lymph # (Auto) 1.4, [place] # (Auto) 0.7, Eos # (Auto) 0.3, Baso # (Auto) 0.0 07/04/20 06:34: Sodium 126 L, Potassium 3.4 L, Chloride 91 L, Carbon Dioxide 26, Anion Gap 12.4, BUN 8 D, Creatinine 0.60, Estimated Creat Clear 69, Estimated GFR 98, Est GFR ( Amer) 119, Glucose 179 H D, Calcium 9.0 I & O for Last 24 hours: Intake & Output 07/01/20 07/02/20 07/03/20 07/04/20 23:59 23:59 23:59 23:59 Intake Total 2555 / 2555 1747 / 1747 Output Total 410 / 410 325 / 325 Balance 2145 / 2145 1422 / 1422 Weight 88.904 kg 86.183 kg Narrative: - Constitutional no acute distress, obese, supine in bed, cooling device on right shoulder - *Routine HEENT Exam Head: Present: normocephalic Eye: Present: EOMI, PERRL ENT: Present: mucous membranes moist - *Routine Neck Exam Present: supple. Absent: lymphadenopathy - *Routine Respiratory Exam Present: CTA bilaterally - *Routine Cardiovascular Exam Present: RRR - *Routine Abdominal Exam Present: soft, hyperactive bowel sounds. Absent: tenderness - *Routine Extremities Exam Absent: cyanosis, clubbing, edema Comments: Shoulder dressing/sling on right side - distal pulses in arms good - *Routine Skin Exam Present: warm. Absent: rash - *Routine Neurological Exam Present: alert, oriented X3 Assessment and Plan (1) Type 2 diabetes mellitus with obesity Status: Acute Category: Medical Code(s): E11.69 - Type 2 diabetes mellitus with other specified complication; E66.9 - Obesity, unspecified (2) Hypertension Status: Acute Category: Medical Code(s): I10 - Essential (primary) hypertension (3) Status post reverse total shoulder replacement Start date: 07/03/20 Status: Acute Category: Surgical Code(s): Z96.619 - Presence of unspecified artificial shoulder joint (4) Rotator cuff tear arthropathy of right shoulder Status: Chronic Category: Medical Code(s): M75.101 - Unspecified rotator cuff tear or rupture of right shoulder, not specified as traumatic; M12.811 - Other specific arthropathies, not elsewhere classified, right shoulder (5) Hyponatremia Status: Acute Category: Medical Code(s): E87.1 - Hypo-osmolality and hyponatremia - Assessment and plan all Dx Assessment and Plan for all problems:: 70-year-old female with multiple comorbidities, admitted for right shoulder arthroplasty. Tolerated procedure well. Pain well controlled on current oral regimen. Brady
[2020-07-04 12:00] VITALS: BP 141/57; PULSE 73; RESP 20; TEMP 36.9; O2SAT 98
[2020-07-04 12:21] LABS: POC Glucose,Bedside 167 (70-110)
--- NOTE | 2020-07-04 13:18 | PC.NURSE ---
Addendum entered by Louise Mallory, RN 07/04/20 14:27: JOHNNY drain also removed by Dr. Marx while rounding at 1245. Approx 25 ml of serosang. drainage noted. Original Note: 1245 Dr. Marx making rounds, RN present at bedside and assisting with care. Incisional care provided by Dr. Marx, tolerated well by pt. MD reports that pt will be discharged home to follow up with him in the office in 1 week. He reports that he will put discharge order in this evening. MD discussed with pt proper care of right arm at home and ROM exercises, also instructed pt to use polar pack and sling at home and to not let elbow go behind the line of the body for appropriate healing. MD allowed pt the chance to ask any questions and voice concerns. IV S/L per MD verbal order.
--- NOTE | 2020-07-04 13:54 | P.PN_ITS ---
Subjective Date: 07/04/20 Time: 13:00 Principal diagnosis: Status post reverse shoulder arthroplasty, right Interval history: Patient is status post right reverse shoulder arthroplasty post op day #1. Patient is lying down in the bed. Says she is doing well and reports no problems. Patient has only minimal in the shoulder; says the nerve block has worn off but the pain is well controlled with as needed oral pain medication. No history of any nausea or vomiting. No history of any cough, chest pain, shortness of breath or palpitations. Patient says she is eating and drinking well. PN: Obj Ex Vital signs: Temp Pulse Resp BP Pulse Ox 98.5 F 73 20 141/57 H 98 07/04/20 12:00 07/04/20 12:00 07/04/20 12:00 07/04/20 12:00 07/04/20 12:00 Narrative: Laboratory Results - last 24 hr 07/04/20 06:31: POC Glucose 173 H 07/04/20 06:34: WBC 10.8, RBC 4.15 L, Hgb 12.8, Hct 38.9, MCV 93.7, MCH 30.7, MCHC 32.8, RDW 13.0, Plt Count 336, MPV 7.1 L, Neut % (Auto) 77.9, Lymph % (Auto) 13.0, [place] % (Auto) 6.6, Eos % (Auto) 2.4, Baso % (Auto) 0.1, Neut # (Auto) 8.4 H, Lymph # (Auto) 1.4, [place] # (Auto) 0.7, Eos # (Auto) 0.3, Baso # (Auto) 0.0 07/04/20 06:34: Sodium 126 L, Potassium 3.4 L, Chloride 91 L, Carbon Dioxide 26, Anion Gap 12.4, BUN 8 D, Creatinine 0.60, Estimated Creat Clear 69, Estimated GFR 98, Est GFR ( Amer) 119, Glucose 179 H D, Calcium 9.0 07/04/20 12:03: POC Glucose 167 H Exam General appearance: alert, active, awake, no acute distress Cardiovascular: regular rate & rhythm, normal peripheral pulses Respiratory: No respiratory distress noted, speaks in full sentences ABD: soft and non tender Neuro: alert, awake, oriented x 3 Psych: Appropriate mood and affect for her situation On examination of the right shoulder the dressings are clean, dry and intact; she is in an arm sling. The surgical drain is in place. The drain is removed and dressings are changed by me. There is no soakage of the dressings. The wound looks clean and healthy. No discharge or wound complications are noted. There is some ecchymosis around the surgical incision and upper arm as to be expected. Distal pulses are 2+. Distal sensation is intact to light touch throughout. She has good active wrist and finger movements. Sensation is intact over the axillary nerve distribution. Deltoid is felt to be wendy well. - Urinary Catheter Management Guerrero Cath placed during this visit: no Progress Note: A&P (1) Type 2 diabetes mellitus with obesity Status: Acute (2) Hypertension Status: Acute (3) Status post reverse total shoulder replacement Status: Acute (4) Rotator cuff tear arthropathy of right shoulder Status: Chronic (5) Hyponatremia Status: Acute Assessment and Plan for All Diagnoses:: I have reviewed the clinical findings and progress with the patient. Patient is doing well and reports no problems. Advised her to continue with the arm sling, rest, activity modification, regular icing/use the polar pack and as needed pain medication. Encouraged her to intermittently move the elbow, forearm, wrist and fingers. Strictly complete nonweightbearing on the right upper extremity. Specifically advised her to not mobilize the shoulder actively; also advised her to place a pillow behind the elbow when lying down or sitting. She is keen to go back home and I am discharging her this afternoon. Follow-up in my office in 1 weeks? time with check x-ray. Continue medical management as per Dr. Mascorro.
[2020-07-04 16:00] VITALS: BP 135/63; PULSE 70; RESP 19; TEMP 36.8; O2SAT 98
[2020-07-04 16:24] LABS: POC Glucose,Bedside 206 (70-110)
[2020-07-04 17:11] LABS: POC Glucose,Bedside 180 (70-110)
--- NOTE | 2020-07-04 17:38 | PC.NURSE ---
RN reassessment completed at 1650. Pt has received PRN pain medication x2 this shift with good relief in pain. Polar pack refilled for pt at this time. Dressing to right shoulder is C/D/I. Dr. Marx performed dressing change earlier in the shift and reported at that time that he would be putting discharge order in for pt when he is finished with surgery. Pt was notified by MD during rounds that discharge will be this evening. Pt is agreeable with plan to discharge and her is at the bedside at this time. No needs/concerns voiced, dinner tray set up for pt.
--- NOTE | 2020-07-04 18:19 | HMH.DCSUM ---
General - General Admission date:: 07/03/20 Discharge date: 07/04/20 HPI HPI: Patient is a 70-year-old female, with advanced degenerative changes in her right shoulder secondary to cuff tear arthropathy, who is admitted to the hospital electively following an elective reverse shoulder arthroplasty on 07/03/2020.? Prior to surgery patient had long-standing pain, stiffness and disability secondary to advanced cuff tear arthropathy in her right shoulder.? She has not responded well to conservative management including NSAID, Tylenol, and intra-articular injections in the past.? A reverse shoulder arthroplasty is indicated to reduce the pain, improve function, range of movements and quality of life.? Her use of the arm and ADLs are adversely affected; she also has history of night pain and sleep disturbance. ? The surgical and nonsurgical alternatives were discussed in detail with the patient as well as the risks and benefits of the surgery.? Patient has a history of hypertension, hyperlipidemia, hypothyroidism, osteoarthritis and type 2 diabetes. Hospital Course Hospital Course: Patient underwent a successful reverse shoulder arthroplasty on 07/03/2020.? Following surgery patient was admitted to hospital and progressed well without any complications.? The postoperative check x-ray was satisfactory with good alignment and fixation of the components.? After overnight hospital stay for observation, patient was discharged to home with self-care on 07/04/2020.? Patient has minimal pain and her pain which is well controlled with as needed oral pain medication.? The incision is healthy and the surgical drain was removed; no signs of any erythema, induration or discharge noted.? The neurovascular status in the right upper extremity is intact.? Distal pulses 2+ bilaterally and fully sensate distally.? No clinical evidence of DVT noted.? On the day of discharge, the patient has been stable.? Patient's vital signs have been stable throughout and patient is afebrile at the time of discharge.? She is being discharged home with family/self-care. Condition at discharge: improved and stable. Treatments and Procedures: Reverse shoulder arthroplasty, right; date of surgery 07/03/2020. Objective Vital signs: Temp Pulse Resp BP Pulse Ox 98.3 F 70 19 135/63 98 07/04/20 16:00 07/04/20 16:00 07/04/20 16:00 07/04/20 16:00 07/04/20 16:00 no acute distress, obese, cooperative - *Routine HEENT Exam Head: Present: normocephalic Eye: Present: EOMI ENT: Present: mucous membranes moist - *Routine Neck Exam Present: supple - *Routine Respiratory Exam Present: CTA bilaterally - *Routine Cardiovascular Exam Present: RRR - *Routine Abdominal Exam Present: soft, normoactive bowel sounds. Absent: tenderness - *Routine Extremities Exam Absent: cyanosis, clubbing Comments: On examination of the right shoulder the dressings are clean, dry and intact; she is in an arm sling. The surgical drain is in place. The drain is removed and dressings are changed by me. There is no soakage of the dressings. The wound looks clean and healthy. No discharge or wound complications are noted. There is some ecchymosis around the surgical incision and upper arm as to be expected. Distal pulses are 2+. Distal sensation is intact to light touch throughout. She has good active wrist and finger movements. Sensation is intact over the axillary nerve distribution. Deltoid is felt to be wendy well. - *Routine Skin Exam Present: warm, normal turgor. Absent: rash - *Routine Neurological Exam Present: alert, oriented X3, moving all extremities - Routine Psychiatric Exam Present: normal affect, cooperative Results Labs on day of discharge: Labs from last 24 hours 07/04/20 07/04/20 07/04/20 16:47 12:03 06:34 WBC RBC Hgb Hct MCV MCH MCHC RDW Plt Count MPV Neut % (Auto) Lymph % (Auto) [place] % (Auto)
--- NOTE | 2020-07-04 19:05 | PC.NURSE ---
1848 discharge education provided to pt, questions encouraged and answered and discharge sheet signed. Pt will be discharged when her returns from picking up her prescription.
--- NOTE | 2020-07-04 19:13 | PC.NURSE ---
report given to ubffy
--- NOTE | 2020-07-04 19:31 | PC.NURSE ---
Pts ride for discharge has returned. Pt assisted with dressing and gathering belongings by staff.
--- NOTE | 2020-07-04 19:39 | PC.NURSE ---
1939 Pt leaving department at this time for discharge home per MD order.
== END 2020-07-04 19:39 | disposition home or self-care (01) | DRG 483 ==
LOC: 2ND 07:22
PROVIDERS: Nurse Anesthetist, Certified Registered; Admitting Provider Orthopaedic Surgery; PCP Internal Medicine Adolescent Medicine; Visit Provider Orthopaedic Surgery
PROC: 0RRJ00Z Replacement of Right Shoulder Joint with Reverse Ball and Socket Synthetic Substitute, Open Approach (ICD-10-PCS; CPT 23472; principal; 2020-07-03 07:30)
DX: M19.011 Primary osteoarthritis, right shoulder (principal); E87.1 Hypo-osmolality and hyponatremia; M25.511 Pain in right shoulder; M75.101 Unspecified rotator cuff tear or rupture of right shoulder, not specified as traumatic; E03.9 Hypothyroidism, unspecified; I10 Essential (primary) hypertension; E11.9 Type 2 diabetes mellitus without complications
CPT/HCPCS: 23472; 36415; 73030; 80048; 80053; 81001; 82962; 83036; 85025; 86328; 86850; 96374; A4649; C1713; C1776; J2405; J3370

== ENCOUNTER → 2020-07-12 09:17 | Outpatient (CLI) | payer MEDICARE, OTHER, SELFPAY ==
--- NOTE | 2020-07-12 09:22 | XR_ITS ---
PROCEDURE: XR SHOULDER RT MIN 2V CLINICAL INDICATION: SP RT shoulder reverse arthroplasty COMPARISON: CR XR SHOULDER RT MIN 2V from 02/28/2020 FINDINGS: The humeral head of the reverse shoulder prosthesis is well seated to the glenoid. The humeral component is in good position with the medullary stem extending into the proximal humeral shaft. The clavicle and AC joint appear grossly normal. IMPRESSION: Satisfactory postoperative appearance reverse shoulder prosthesis Dictated by: Dr. Catalino Brady MD 07/12/2020 09:50 Dr. Catalino Brady MD in [facility] 07/12/2020 09:50
== END ==
PROVIDERS: PCP Internal Medicine Adolescent Medicine; Visit Provider Orthopaedic Surgery
DX: M25.511 Pain in right shoulder; Z96.611 Presence of right artificial shoulder joint
CPT/HCPCS: 73030

== ENCOUNTER → 2020-08-16 08:57 | Outpatient (CLI) | payer MEDICARE, OTHER, SELFPAY ==
--- NOTE | 2020-08-16 09:02 | XR_ITS ---
PROCEDURE: XR SHOULDER RT MIN 2V CLINICAL INDICATION: sp RT reverse total shoulder arthroplasty COMPARISON: CR XR SHOULDER LT MIN 2V from 02/28/2020 CR XR SHOULDER RT MIN 2V from 02/28/2020 CR XR SHOULDER RT MIN 2V from 07/03/2020 CR XR SHOULDER RT MIN 2V from 07/12/2020 FINDINGS: Status post reverse right told rule shoulder arthroplasty with good alignment. No radiographic evidence of orthopedic complication. IMPRESSION: Good alignment status post right shoulder reverse total arthroplasty. Dictated by: Teja Hernandez MD 08/16/2020 18:36 Teja Hernandez MD in [facility] 08/16/2020 18:36
== END ==
PROVIDERS: PCP Internal Medicine Adolescent Medicine; Visit Provider Orthopaedic Surgery
DX: Z96.619 Presence of unspecified artificial shoulder joint (principal); M25.511 Pain in right shoulder
CPT/HCPCS: 73030

== ENCOUNTER → 2020-10-10 08:29 | Outpatient (CLI) | payer MEDICARE, OTHER, SELFPAY ==
[2020-10-10 09:22] LABS: Basophils % 0.5 % (0.1-2.0); Eosinophils # 0.3 K/mm3 (0.0-0.4); Eosinophils % 4.5 % (0.1-12.0); Hematocrit 45.2 % (37.0-47.0); Hemoglobin 15.2 g/dL (12.2-16.2); Hemoglobin A1C 7.3 % (4.0-6.0); Lymphocytes # 1.5 K/mm3 (0.7-4.5); Lymphocytes % 20.1 % (10-50); Mean Corpuscular HGB Conc 33.6 g/dL (31.8-35.4); Mean Corpuscular Hemoglobin 30.2 pg (27.0-31.2); Mean Corpuscular Volume 89.9 fl (81-99); Mean Platelet Volume 7.7 fl (7.4-10.4); Monocytes # 0.6 K/mm3 (0.1-1.0); Monocytes % 7.6 % (1.7-9.3); Neutrophils % 67.3 % (37.0-80.0); Platelet Count 372 K/mm3 (142-424); Red Blood Count 5.03 M/mm3 (4.20-5.40); Red Cell Distribution Width 13.8 % (11.5-17.5); White Blood Count 7.5 K/mm3 (4.8-10.8)
[2020-10-10 09:52] LABS: Alanine Aminotransferase 44 U/L (12-78); Albumin Level 4.2 g/dl (3.5-5.0); Albumin/Globulin Ratio 1.4 (1.1-1.8); Alkaline Phosphatase 167 U/L (38-126); Anion Gap 15.3 mEq/L (5-15); Aspartate Amino Transferase 40 U/L (14-36); Bilirubin,Total 0.7 mg/dl (0.2-1.3); Blood Urea Nitrogen 18 mg/dl (7-17); Calcium 10.1 mg/dl (8.4-10.2); Carbon Dioxide 28 mmol/L (22.0-30.0); Chloride 93 mmol/L (98-107); Chol/HDL Ratio 2.2 (1-3.5); Cholesterol 141 mg/dl (140-200); Estimated Glomerular Filt Rate 82 ml/min (>60); GFR (African American) 100 ML/MIN (>60); Globulin 2.9 g/dL (1.3-3.2); Glucose 161 mg/dl (74-100); HDL Cholesterol 65 mg/dl (40-60); Potassium 4.3 mmoL/L (3.5-5.1); Sodium 132 mmol/L (136-145); Total Protein,Serum 7.1 g/dl (6.3-8.2); Triglycerides 84 mg/dl (30-150); VLDL Cholesterol 17 mg/dL (0-40)
[2020-10-10 10:03] LABS: Direct LDL Cholesterol 45.94 mg/dL (100-129)
[2020-10-10 10:25] LABS: Thyroid Stimulating Hormone < 0.02 uIU/mL (0.465-4.68)
[2020-10-10 10:42] LABS: Vitamin B12 318 pg/mL (239-931)
== END ==
PROVIDERS: Visit Provider Internal Medicine Adolescent Medicine
DX: E11.9 Type 2 diabetes mellitus without complications (principal); E03.9 Hypothyroidism, unspecified; E78.5 Hyperlipidemia, unspecified; G60.9 Hereditary and idiopathic neuropathy, unspecified
CPT/HCPCS: 36415; 80053; 80061; 82607; 83036; 84443; 85025

== ENCOUNTER → 2020-10-16 13:57 | Outpatient (CLI) | payer MEDICARE, OTHER, SELFPAY | PROVIDERS: PCP Internal Medicine Adolescent Medicine; Visit Provider Internal Medicine Adolescent Medicine | DX: G47.33 Obstructive sleep apnea (adult) (pediatric) (principal) | CPT/HCPCS: G0399 ==

== ENCOUNTER 2020-11-03 09:00 | Outpatient (RCR) | payer MEDICARE, OTHER, SELFPAY ==
--- NOTE | 2020-09-06 10:36 | HMH.RHREAS ---
Rehab Reassessment Rehab OP Re-assessment Start: 09/06/20 10:15 Freq: Status: Active Protocol: Document 09/06/20 10:15 ALLIILEANA (Rec: 09/06/20 10:20 [email or web address] [id number]) Electronically Signed By Jn Chapman, PT 09/06/20 10:15 Rehab Re-assessment Subjective Subjective Patient reports 50% improvement since start of care. It doesn't hurt at all . I'm just not able to use it much. Objective Objective Notes R GHJ AROM: flx 98 ; abd 92; ER 20; IR WNL R GHJ PROM: flx 118; abd 112; ER 20; IR WNL MMT: 3/5 grossly all planes Pain: 0/10 today; 0/10 grossly over past week Neuro: WNL Assessment Progress Assessment Progressing as Expected Assessment Notes Patient is tolerating progression of Rx well. Progressing Rx per MD protocol . At this point, patient is limited to PROM/AAROM per protocol. Functional limitations with any reaching/ lifting/overhead activities persist. Patient goals met STG's Goals Not Met LTG's Revised Goals NA Plan Plan Continue with current POC. Frequency of Therapy 2x/week Duration of therapy 4 weeks Time and Billing Re-Eval Time 15 Re-Eval Billing Units 1 PHYSICIAN CERTIFICATION: I certify the specified therapy services for Angelique Garnica are required, authorized, and reviewed every 30 days.
== END 2020-11-03 09:05 | disposition home or self-care (01) ==
LOC: PT 09:00
PROVIDERS: PCP Internal Medicine Adolescent Medicine; Visit Provider Orthopaedic Surgery
DX: M25.511 Pain in right shoulder (principal); Z96.611 Presence of right artificial shoulder joint
CPT/HCPCS: 97110; 97140; 97163; 97164

== ENCOUNTER → 2020-12-14 10:58 | Outpatient (POV) | payer MEDICARE, OTHER, SELFPAY | PROVIDERS: Visit Provider Audiologist | DX: Z00.00 Encounter for general adult medical examination without abnormal findings (principal) ==

== ENCOUNTER → 2021-01-03 09:22 | Outpatient (CLI) | payer MEDICARE, OTHER, SELFPAY ==
--- NOTE | 2021-01-03 09:30 | XR_ITS ---
PROCEDURE: XR SHOULDER RT MIN 2V CLINICAL INDICATION: s/p RT reverse shoulder COMPARISON: CR XR SHOULDER LT MIN 2V from 02/28/2020 CR XR SHOULDER RT MIN 2V from 07/03/2020 CR XR SHOULDER RT MIN 2V from 07/12/2020 CR XR SHOULDER RT MIN 2V from 08/16/2020 FINDINGS: S/p total reverse shoulder replacement with good alignment. No evidence of orthopedic complication. No dislocation Other findings:None. IMPRESSION: Right total shoulder replacement unchanged Dictated by: Teja Hernandez MD 01/03/2021 13:25 Teja Hernandez MD in [facility] 01/03/2021 13:25
== END ==
PROVIDERS: PCP Internal Medicine Adolescent Medicine; Visit Provider Orthopaedic Surgery
DX: M25.511 Pain in right shoulder; Z96.611 Presence of right artificial shoulder joint
CPT/HCPCS: 73030

== ENCOUNTER → 2021-02-03 07:44 | Outpatient (CLI) | payer MEDICARE, OTHER, SELFPAY ==
[2021-02-03 08:15] LABS: Basophils # 0.1 K/mm3 (0-0.2); Basophils % 0.6 % (0.1-2.0); Eosinophils # 0.3 K/mm3 (0.0-0.4); Eosinophils % 3.1 % (0.1-12.0); Hematocrit 48.6 % (37.0-47.0); Lymphocytes # 1.8 K/mm3 (0.7-4.5); Lymphocytes % 17.8 % (10-50); Mean Corpuscular HGB Conc 32.9 g/dL (31.8-35.4); Mean Corpuscular Hemoglobin 30.3 pg (27.0-31.2); Mean Corpuscular Volume 92.1 fl (81-99); Monocytes # 0.5 K/mm3 (0.1-1.0); Monocytes % 4.8 % (1.7-9.3); Neutrophils # 7.5 K/mm3 (1.8-7.8); Neutrophils % 73.7 % (37.0-80.0); Platelet Count 337 K/mm3 (142-424); Red Blood Count 5.28 M/mm3 (4.20-5.40); White Blood Count 10.2 K/mm3 (4.8-10.8)
[2021-02-03 08:52] LABS: Hemoglobin A1C 7.3 % (4.0-6.0)
[2021-02-03 08:53] LABS: Anion Gap 14.6 mEq/L (5-15); Blood Urea Nitrogen 17 mg/dl (7-17); Calcium 9.3 mg/dl (8.4-10.2); Carbon Dioxide 28 mmol/L (22.0-30.0); Chloride 95 mmol/L (98-107); Cholesterol 238 mg/dl (140-200); Estimated Glomerular Filt Rate 98 ml/min (>60); GFR (African American) 119 ML/MIN (>60); Glucose 154 mg/dl (74-100); Potassium 4.6 mmoL/L (3.5-5.1); Sodium 133 mmol/L (136-145); Triglycerides 108 mg/dl (30-150); VLDL Cholesterol 22 mg/dL (0-40)
[2021-02-03 08:54] LABS: Alanine Aminotransferase 28 U/L (12-78); Aspartate Amino Transferase 289 U/L (14-36); Bilirubin,Total 15.5 mg/dl (0.2-1.3); Chol/HDL Ratio 8.2 (1-3.5); HDL Cholesterol 29 mg/dl (40-60)
[2021-02-03 09:33] LABS: Albumin Level > 6.0 g/dl (3.5-5.0); Albumin/Globulin Ratio 1.2 (1.1-1.8); Total Protein,Serum > 11.0 g/dl (6.3-8.2)
[2021-02-03 10:51] LABS: Alkaline Phosphatase 94 U/L (38-126)
[2021-02-03 11:02] LABS: Direct LDL Cholesterol 116.27 mg/dL (100-129)
== END ==
PROVIDERS: Visit Provider Internal Medicine Adolescent Medicine
DX: E03.9 Hypothyroidism, unspecified (principal); E78.5 Hyperlipidemia, unspecified; E11.9 Type 2 diabetes mellitus without complications
CPT/HCPCS: 36415; 80053; 80061; 83036; 84443; 85025

== ENCOUNTER → 2021-05-09 10:22 | Outpatient (CLI) | payer MEDICARE, OTHER, SELFPAY ==
--- NOTE | 2021-05-09 10:26 | MM_ITS ---
PROCEDURE: MM DIG SCREENING MAMM BI W/CAD Digital Breast Tomosynthesis Included CLINICAL INDICATION: SCREENING COMPARISON: MG DMSB DIG MAMM-SCREEN KANA W/CAD from 10/03/2016 MG SCBI MM Dig screening mamm BI w/CAD from 07/28/2018 MG MM DIG SCREENING MAMM BI W/CAD from 11/04/2019 MG MM DIG MAMM DX UNILAT LT CAD from 11/22/2019 TECHNIQUE: Standard CC and MLO images and 3D Tomosynthesis was obtained. R2 CAD reviewed. FINDINGS: Average fibroglandular tissue. No suspicious appearing mass, malignant-appearing microcalcification, architectural distortion, or skin thickening.. Bilateral benign-appearing calcifications and nodules. No change IMPRESSION: Benign findings BI-RAD Category: 2 Benign Finding FOLLOW-UP: 1 YR 1 Year Follow-up (A letter has been sent to the patient regarding results of the study.) Dictated by: Teja Hernandez MD 05/14/2021 13:32 Teja Hernandez MD in [place] 05/14/2021 13:32
== END ==
PROVIDERS: PCP Internal Medicine Adolescent Medicine; Visit Provider Internal Medicine Adolescent Medicine
DX: Z12.31 Encounter for screening mammogram for malignant neoplasm of breast (principal)
CPT/HCPCS: 77063; 77067

== ENCOUNTER → 2021-07-10 09:02 | Outpatient (CLI) | payer MEDICARE, OTHER, SELFPAY ==
--- NOTE | 2021-07-10 09:06 | XR_ITS ---
PROCEDURE: XR SHOULDER RT MIN 2V CLINICAL INDICATION: s/p RT reverse shoulder COMPARISON: CR XR SHOULDER RT MIN 2V from 01/03/2021 FINDINGS: Comparison made the previous right shoulder 01/03/2021 and the reverse shoulder prosthesis appears to be in satisfactory position in overall alignment no interval change from the previous study. The soft tissues are normal. The clavicle and AC joint appear normal. IMPRESSION: No acute findings. Dictated by: Dr. Catalino Brady MD 07/10/2021 10:04 Dr. Catalino Brady MD in [place] 07/10/2021 10:04
== END ==
PROVIDERS: PCP Internal Medicine Adolescent Medicine; Visit Provider Orthopaedic Surgery
DX: M25.511 Pain in right shoulder; Z96.611 Presence of right artificial shoulder joint
CPT/HCPCS: 73030

== ENCOUNTER → 2021-09-06 08:07 | Outpatient (CLI) | payer MEDICARE, OTHER, SELFPAY ==
[2021-09-06 08:34] LABS: Basophils # 0.1 K/mm3 (0-0.2); Eosinophils # 0.3 K/mm3 (0.0-0.4); Eosinophils % 3.6 % (0.1-12.0); Lymphocytes # 1.4 K/mm3 (0.7-4.5); Lymphocytes % 15.2 % (10-50); Mean Corpuscular HGB Conc 32.7 g/dL (31.8-35.4); Mean Corpuscular Hemoglobin 31.5 pg (27.0-31.2); Mean Corpuscular Volume 96.4 fl (81-99); Mean Platelet Volume 7.6 fl (7.4-10.4); Monocytes # 0.6 K/mm3 (0.1-1.0); Monocytes % 6.3 % (1.7-9.3); Neutrophils # 6.7 K/mm3 (1.8-7.8); Neutrophils % 73.9 % (37.0-80.0); Platelet Count 327 K/mm3 (142-424); Red Blood Count 5.08 M/mm3 (4.20-5.40); Red Cell Distribution Width 13.4 % (11.5-17.5); White Blood Count 9.1 K/mm3 (4.8-10.8)
[2021-09-06 08:57] LABS: Hemoglobin A1C 9.8 % (4.0-6.0)
[2021-09-06 09:43] LABS: Chloride 96 mmol/L (98-107)
[2021-09-06 09:44] LABS: Potassium 4.6 mmoL/L (3.5-5.1); Sodium 133 mmol/L (136-145)
[2021-09-06 09:46] LABS: Alanine Aminotransferase 24 U/L (12-78); Albumin Level 4.3 g/dl (3.5-5.0); Albumin/Globulin Ratio 1.7 (1.1-1.8); Alkaline Phosphatase 104 U/L (38-126); Anion Gap 10.6 mEq/L (5-15); Aspartate Amino Transferase 29 U/L (14-36); Bilirubin,Total 0.9 mg/dl (0.2-1.3); Blood Urea Nitrogen 17 mg/dl (7-17); Carbon Dioxide 31 mmol/L (22.0-30.0); Estimated Glomerular Filt Rate 82 ml/min (>60); GFR (African American) 99 ML/MIN (>60); Globulin 2.6 g/dL (1.3-3.2); Total Protein,Serum 6.9 g/dl (6.3-8.2)
[2021-09-06 09:47] LABS: Calcium 9.7 mg/dl (8.4-10.2); Cholesterol 142 mg/dl (140-200); Glucose 223 mg/dl (74-100); HDL Cholesterol 70 mg/dl (40-60); Triglycerides 93 mg/dl (30-150); VLDL Cholesterol 19 mg/dL (0-40)
[2021-09-06 09:58] LABS: Direct LDL Cholesterol 51.75 mg/dL (100-129)
[2021-09-06 10:18] LABS: Thyroid Stimulating Hormone 0.97 uIU/mL (0.465-4.68)
== END ==
PROVIDERS: Visit Provider Internal Medicine Adolescent Medicine
DX: E03.9 Hypothyroidism, unspecified (principal); E78.5 Hyperlipidemia, unspecified; E11.9 Type 2 diabetes mellitus without complications
CPT/HCPCS: 36415; 80053; 80061; 83036; 84443; 85025

== ENCOUNTER → 2021-11-17 07:23 | Outpatient (CLI) | payer MEDICARE, OTHER, SELFPAY ==
[2021-11-17 08:00] LABS: Basophils # 0.1 K/mm3 (0-0.2); Basophils % 1.1 % (0.1-2.0); Eosinophils # 0.1 K/mm3 (0.0-0.4); Eosinophils % 1.4 % (0.1-12.0); Hematocrit 48.6 % (37.0-47.0); Hemoglobin 16.2 g/dL (12.2-16.2); Lymphocytes # 1.3 K/mm3 (0.7-4.5); Lymphocytes % 14.3 % (10-50); Mean Corpuscular HGB Conc 33.2 g/dL (31.8-35.4); Mean Corpuscular Hemoglobin 31.5 pg (27.0-31.2); Mean Corpuscular Volume 94.7 fl (81-99); Mean Platelet Volume 7.7 fl (7.4-10.4); Monocytes # 0.7 K/mm3 (0.1-1.0); Monocytes % 7.5 % (1.7-9.3); Neutrophils # 6.8 K/mm3 (1.8-7.8); Neutrophils % 75.6 % (37.0-80.0); Platelet Count 356 K/mm3 (142-424); Red Blood Count 5.14 M/mm3 (4.20-5.40); Red Cell Distribution Width 13.1 % (11.5-17.5)
[2021-11-17 08:29] LABS: Alanine Aminotransferase 34 U/L (12-78); Albumin Level 4.5 g/dl (3.5-5.0); Albumin/Globulin Ratio 1.5 (1.1-1.8); Alkaline Phosphatase 91 U/L (38-126); Anion Gap 13.2 mEq/L (5-15); Aspartate Amino Transferase 35 U/L (14-36); Bilirubin,Total 0.9 mg/dl (0.2-1.3); Blood Urea Nitrogen 17 mg/dl (7-17); Calcium 9.8 mg/dl (8.4-10.2); Carbon Dioxide 28 mmol/L (22.0-30.0); Chloride 92 mmol/L (98-107); Chol/HDL Ratio 2.2 (1-3.5); Cholesterol 130 mg/dl (140-200); Estimated Glomerular Filt Rate 82 ml/min (>60); GFR (African American) 99 ML/MIN (>60); Glucose 163 mg/dl (74-100); HDL Cholesterol 59 mg/dl (40-60); Potassium 4.2 mmoL/L (3.5-5.1); Sodium 129 mmol/L (136-145); Total Protein,Serum 7.5 g/dl (6.3-8.2); Triglycerides 84 mg/dl (30-150); VLDL Cholesterol 17 mg/dL (0-40)
[2021-11-17 08:40] LABS: Direct LDL Cholesterol 37.35 mg/dL (100-129)
[2021-11-17 08:59] LABS: Thyroid Stimulating Hormone 1.04 uIU/mL (0.465-4.68)
== END ==
PROVIDERS: PCP Internal Medicine Adolescent Medicine; Visit Provider Internal Medicine Adolescent Medicine
DX: E03.9 Hypothyroidism, unspecified (principal); E11.9 Type 2 diabetes mellitus without complications; E78.5 Hyperlipidemia, unspecified
CPT/HCPCS: 36415; 80053; 80061; 83036; 84443; 85025

== ENCOUNTER 2022-02-27 15:00 | Outpatient (RCR) | payer MEDICARE, OTHER, SELFPAY ==
--- NOTE | 2022-01-31 14:00 | HMH.PTOPEV ---
PT Outpatient Evaluation Rehab PT Outpatient Evaluation Start: 01/31/22 10:05 Freq: Status: Active Protocol: Document 01/31/22 10:05 ANISA (Rec: 01/31/22 13:59 ANISA [id number]) Electronically Signed By Johana Mazariegos PT 01/31/22 10:05 Outpatient Therapy Subjective History Subjective History Pt is a 71 y/o female that reports generalized leg weakness. Pt reports she realized her legs were extremely weak when she took a bath 1 month ago with difficulty getting out of the tub requiring help from her . Pt reports she feels safe walking without an AD but is careful about walking on uneven ground. Pt reports she has a cane and walker at home but doesn't feel she needs to use them. Pt reports she is only able to walk for ~10 minutes without needing to rest due to LE fatigue. Pt denies recent falls. Pt denies diffculty with stairs and states she has 3 to get in to her home with 1 hand rail that she often uses for exercise. Pt denies knee pain with exception of occasional twinge in the right knee. Occupation: Retired Comorbidities: Hypothyroid, hypertension, type II diabetes , osteopenia, arthritis, L TKA (2018), R RTSA (2019) Chief Complaint Weakness Symptom Type Ache Symptoms Relieved By Rest/Positioning Symptoms Aggravated By Standing,Physical Activity, Walking Prior Functional Limitations None Current Functional Limitations Standing,Squatting,Walking, Stairs Symptom Description Constant but Variable, Intermittent Level of pain today (0-10) 0 Pain scale - at its best (0-10) 0 Pain scale - at its worst (0-10) 4 Hip/Knee Eval Gait Observation General Gait Pattern Observation Wide Based Gait,Hips Posterior to ASHLEY,Decrease Stride Lngth (R) Assistive Device Assistive Devices
== END 2022-02-27 15:05 | disposition home or self-care (01) ==
LOC: PT 15:00
PROVIDERS: PCP Internal Medicine Adolescent Medicine; Visit Provider Internal Medicine Adolescent Medicine
DX: R26.89 Other abnormalities of gait and mobility (principal); M25.562 Pain in left knee; M25.561 Pain in right knee
CPT/HCPCS: 97110; 97112; 97163; 97530

== ENCOUNTER → 2022-06-24 16:10 | Outpatient (CLI) | payer MEDICARE, OTHER, SELFPAY ==
--- NOTE | 2022-06-24 16:13 | MM_ITS ---
PROCEDURE INFORMATION: Exam: MG Bilateral Screening 3D Mammography Exam date and time: 06/24/2022 4:08 PM Age: 72 years old Clinical indication: Screening. Her mother had breast cancer. TECHNIQUE: Imaging protocol: Bilateral Screening tomosynthesis and 2D mammography including computer-aided detection (CAD) when performed. COMPARISON: 1. MG MM DIG SCREENING MAMM BI W/CAD 05/09/2021 10:26 AM 2. MG MM DIG MAMM DX UNILAT LT CAD 11/22/2019 1:43 PM 3. MG MM DIG SCREENING MAMM BI W/CAD 11/04/2019 9:16 AM 4. MG SCBI MM Dig screening mamm BI w/CAD 07/28/2018 10:45 AM FINDINGS: MAMMOGRAPHY: Breast composition: There are scattered areas of fibroglandular density. Mass: Oval, possibly lobulated, 0.6 cm mass in the right upper outer quadrant, posterior 3rd (posterior to the stable intramammary lymph node). Architectural distortion: None. Calcifications: No suspicious calcifications. Asymmetric density: None. Skin thickening: None. Axillary adenopathy: None. IMPRESSION: Patient to be recalled for right diagnostic spot compression in the CC and MLO and right breast ultrasound for further evaluation of right breast mass. ASSESSMENT: BI-RADS Category 0: Incomplete- Need Additional Imaging Evaluation and/or Prior Mammograms for Comparison
== END ==
PROVIDERS: PCP Internal Medicine Adolescent Medicine; Visit Provider Internal Medicine Adolescent Medicine
DX: Z12.31 Encounter for screening mammogram for malignant neoplasm of breast (principal)
CPT/HCPCS: 77063; 77067

== ENCOUNTER → 2022-07-15 13:39 | Outpatient (CLI) | payer MEDICARE, OTHER, SELFPAY ==
--- NOTE | 2022-07-15 13:52 | MM_ITS ---
PROCEDURE INFORMATION: Exam: US Right Breast, Complete MG Right Diagnostic Breast Tomosynthesis Exam date and time: 07/15/2022 1:50 PM Age: 72 years old Clinical indication: Patient recalled for further evaluation of a right breast mass TECHNIQUE: Imaging protocol: Complete ultrasound of all four quadrants of the Right breast and the retroareolar regions, including ultrasound of the axilla when performed. Right Diagnostic tomosynthesis and 2D mammography including computer-aided detection (CAD) when performed. Unilateral or bilateral exam. COMPARISON: 1. MG MM DIG SCREENING MAMM BI W/CAD 06/24/2022 4:08 PM 2. MG MM DIG SCREENING MAMM BI W/CAD 05/09/2021 10:26 AM FINDINGS: MAMMOGRAPHY: Digital diagnostic spot compression views of the posterior right upper outer quadrant demonstrates a 0.6 cm ovoid mass most likely representing a benign lymph node. ULTRASOUND: Sonographic images of the right breast including the retroareolar region, all 4 quadrants and the axilla do not demonstrate any solid masses. Minimal subcentimeter cystic change medially. A 0.4 cm benign intramammary lymph node is noted in the 10 o'clock axis 11 cm from the nipple. No architectural distortion or acoustical shadowing. No skin thickening or axillary adenopathy. IMPRESSION: 0.6 cm mass posterior to a benign intramammary lymph node in the right upper outer quadrant is probably benign in etiology and definitively seen on sonography. A six-month follow-up diagnostic right mammogram is recommended to ensure stability of the pattern identified ASSESSMENT: Assessment: BI-RADS Category 3: Probably benign
== END ==
PROVIDERS: PCP Internal Medicine Adolescent Medicine; Visit Provider Internal Medicine Adolescent Medicine
DX: R92.8 Other abnormal and inconclusive findings on diagnostic imaging of breast (principal)
CPT/HCPCS: 76641; 77061; 77065; G0279

== ENCOUNTER → 2023-01-06 13:40 | Outpatient (CLI) | payer MEDICARE, OTHER, SELFPAY ==
--- NOTE | 2023-01-06 13:47 | MM_ITS ---
PROCEDURE INFORMATION: Exam: MG Right Diagnostic Breast Tomosynthesis Exam date and time: 01/06/2023 1:38 PM Age: 72 years old Clinical indication: Short-term radiographic followup; Right breast; mass TECHNIQUE: Imaging protocol: Right Diagnostic tomosynthesis and 2D mammography including computer-aided detection (CAD) when performed. Unilateral or bilateral exam. COMPARISON: 1. MG MM DIG MAMM DX UNILAT RT CAD 07/15/2022 1:50 PM 2. MG MM DIG SCREENING MAMM BI W/CAD 06/24/2022 4:08 PM FINDINGS: MAMMOGRAPHY: The breast tissue is composed of scattered areas of fibroglandular density. There is no stellate mass, architectural distortion or suspicious microcalcifications to suggest malignancy. No suspicious findings on routine or spot compression views of the posterior right upper outer quadrant. The tomographic images confirm the presence of fat within the 0.6 cm posterior upper outer quadrant mass most consistent with a benign lymph node. No skin thickening or axillary adenopathy. IMPRESSION: No mammographic evidence of malignancy. Benign lymph node in the right upper outer quadrant.Annual bilateral mammographic screening is recommended in June 2023 unless otherwise clinically indicated. ASSESSMENT: BI-RADS Category 2: Benign
== END ==
PROVIDERS: PCP Internal Medicine Adolescent Medicine; Visit Provider Internal Medicine Adolescent Medicine
DX: R92.8 Other abnormal and inconclusive findings on diagnostic imaging of breast (principal)
CPT/HCPCS: 77061; 77065; G0279

== ENCOUNTER → 2023-04-01 10:50 | Outpatient (CLI) | payer MEDICARE, OTHER, SELFPAY ==
--- NOTE | 2023-04-01 10:56 | XR_ITS ---
FINAL REPORT CLINICAL HISTORY: lt shoulder pain..no truama COMPARISON: February 2020 FINDINGS: 3 views of the left shoulder were obtained. There is no acute fracture or dislocation. There is advanced degenerative disease, progressed from prior. There are no soft tissue abnormalities. IMPRESSION: Advanced degenerative disease. Reviewed, Interpreted and Dictated by Madison Connolly MD Transcribed by Rufus Cobian Authenticated and [facility]
== END ==
PROVIDERS: PCP Internal Medicine Adolescent Medicine; Visit Provider Orthopaedic Surgery
DX: M25.512 Pain in left shoulder (principal)
CPT/HCPCS: 73030

== ENCOUNTER 2024-01-21 14:06 | Outpatient (CLI) | payer MEDICARE, OTHER, SELFPAY ==
--- NOTE | 2024-01-21 14:11 | MR_ITS ---
FINAL REPORT CLINICAL HISTORY: Lt shoulder pain lrom x 6 months FINDINGS: Multiplanar MR imaging of the left shoulder was performed without contrast. Motion artifact is noted on many of the images. There is supraspinatus tendinosis with a partial-thickness articular surface tear involving less than 50% of the thickness of the tendon. No full-thickness rotator cuff tear is identified. Questionable calcification is seen in the distal infraspinatus tendon which may represent calcific tendinitis. There is mild AC joint arthrosis. No abnormal fluid is seen in the subacromial/subdeltoid bursa. Diffuse labral degeneration is seen. There is abnormal morphology of the superior labrum worrisome for a SLAP tear. The long head of the biceps tendon is intact. A moderate glenohumeral joint effusion is seen. There is no evidence of fracture or dislocation. The musculature is intact. Moderate glenohumeral degenerative changes are seen. IMPRESSION: Partial-thickness articular surface tear of the distal supraspinatus tendon without evidence of full-thickness rotator cuff tear. Questionable infraspinatus calcific tendinitis. Findings worrisome for a SLAP tear. Moderate glenohumeral degenerative change. Authenticated and [facility]
== END 2024-01-21 23:59 | disposition home or self-care (01) ==
LOC: RAD 14:07
PROVIDERS: PCP Internal Medicine Adolescent Medicine; Visit Provider Orthopaedic Surgery
DX: M25.512 Pain in left shoulder (principal)
CPT/HCPCS: 73221

== ENCOUNTER 2024-03-24 07:24 | Outpatient (CLI) | payer MEDICARE, OTHER, SELFPAY ==
--- NOTE | 2024-03-24 | CA_ITS ---
APPROVED REPORT EXAM: Comprehensive 2D, Doppler, and color-flow Echocardiogram Signal Supervisor: Eliane Gan CRT Ht: 5 ft 2 in Wt: 214lbs BSA: 1.97 BP: 147/63 mmHg Indications: Abnormal ECG, Diabetes, Hyperlipidemia, Hypertension/HDD, Pre-Op 2D Dimensions LA Volume 27.70 mL LA Volume Index 13.80 mL/m2 (M/F) 16-34 M-Mode Dimensions RVDd 2.22 cm (0.9-2.6) LA Diam 3.26 cm (1.9-4.0) LVDd 4.11 cm (3.5-5.7) LVDs 2.68 cm (3.5-5.7) IVSd 1.90 cm (0.6-1.1) PWd 0.97 cm (0.6-1.1) EF (Teich) 64.50% FS 34.80% EDV (Teich) 74.70 mL TAPSE 1.30 (<1.7) ESV (Teich) 26.50 mL LV Diastology E Decel Time 250 (160-240 msec) E/A Ratio 0.74 MED A' 9.60 cm/s LAT A' 10.00 cm/s Aortic Valve AO Peak GR. 8.80 mmHg Mitral Valve MV A Velocity 69.0 (40-130 cm/s) E/A Ratio 0.74 Pulmonary Valve PV Peak Velocity 103.0 (50-150 cm/s) Tricuspid Valve TR P. Velocity 224.00 cm/s RAP Estimate 10.00 mmHg RVSP 30.10 mmHg Left Ventricle The left ventricle is normal size. The left ventricular systolic function is normal. The left ventricular ejection fraction is within the normal range. Proximal septal thickening is noted. There is normal LV segmental wall motion. Transmitral Doppler flow pattern suggests impaired LV relaxation. LVEF is 60%. Right Ventricle The right ventricle is mildly dilated. The right ventricular systolic function is normal. Atria The left atrium size is normal. The right atrium size is normal. Aortic Valve The aortic valve is mildly thickened. There is no aortic valvular stenosis. No aortic regurgitation is present. Mitral Valve The mitral valve is normal in structure. No evidence of mitral valve stenosis. There is no mitral valve regurgitation noted. Tricuspid Valve The tricuspid valve leaflets are thin and pliable. Trace tricuspid regurgitation. RVSP is normal. Trace pulmonic regurgitation. Pulmonic Valve The pulmonary valve is normal in structure. Great Vessels The aortic root is normal in size. The ascending aorta is normal in size. IVC is normal in size and collapses >50% with inspiration. Pericardium There is no pericardial effusion. Other Information Study Quality: Fair Conclusion Normal biventricular systolic function. Mild RV dilation. No significant valvular stenosis or regurgitation. Electronically signed by : Elena Reveles MD 03/27/2024 23:18:21
--- NOTE | 2024-03-24 07:26 | NM_ITS ---
APPROVED REPORT Exam: Nuclear Stress Test Indication: OBESITY, HTN, DM, HYPERLIPIDEMIA, FM HX, FATIGUE, ABN EKG Patient Location: Outpatient Stress Tech: Viktoriya Starkey CT Tech:PEPE Delgado RT (R)(N)(M) Ht: 5 ft 2 in Wt: 211 lbs Bra Size: C HR: 60 bpm BP: 136/62 mmHg BSA: 1.96 m2 TID: 1.18 BMI: 38.5 History: OBESITY, HTN, DM, HYPERLIPIDEMIA, FM HX, FATIGUE, ABN EKG PT COULD NOT LAY ON STOMCH FOR PRONE IMAGES Procedure: Patient received 0.4 mg of intravenous Lexiscan, resting heart rate 60 bpm, resting blood pressure 136/62 mmHg, with Lexiscan maximum heart rate achieved was 77 bpm which is % of the maximum predicted heart rate and blood pressure was 109/49 mmHg. With Lexiscan, patient denied any complaint of chest pain. Cardiac Stress and Resting SPECT Images: Cardiac Stress and Resting SPECT images were obtained using technetium 99m Myoview 31.3 mCi stress and 10.43 mCi at rest. The patient could not lie on her abdomen. Therefore, prone stress imaging could not be performed. This may affect the diagnostic interpretation of the study findings. Resting and stress imaging in supine positions demonstrate no evidence of fixed or reversible perfusion defects. Gated imaging demonstrates normal global and regional LV systolic function. LVEF is calculated at 71%. Conclusion: No evidence of fixed or reversible perfusion defects. Gated imaging demonstrates normal global and regional LV systolic function. LVEF is calculated at 71%. Electronically signed by : Elena Reveles MD 03/25/2024 12:46:06
[2024-03-24] MEDS: SODIUM CHLORIDE 0.9% 10ML SYR (RAD ONLY) 10 ML IV ×2 (07:30)
[2024-03-24] MEDS: REGADENOSON 0.4MG/5ML SYRINGE 0.4 MG IV (08:35)
[2024-03-24] MEDS: ISOTOPE MYOVIEW (PER STUDY) 1 DOSE IV (10:07)
== END 2024-03-24 23:59 | disposition home or self-care (01) ==
LOC: RAD 07:26
PROVIDERS: PCP Internal Medicine Adolescent Medicine; Visit Provider Nurse Practitioner
DX: R06.02 Shortness of breath (principal); E78.5 Hyperlipidemia, unspecified; E11.8 Type 2 diabetes mellitus with unspecified complications; Z79.4 Long term (current) use of insulin; R53.83 Other fatigue; R94.31 Abnormal electrocardiogram [ECG] [EKG]; I10 Essential (primary) hypertension
CPT/HCPCS: 78452; 93017; 93018; 93306; A9502; J2785